=== PATIENT | male | born 1960 | race Caucasian/White ===

== ENCOUNTER 2020-07-03 09:17 | Outpatient (REF) | payer BC, SELFPAY ==
[2020-07-03 11:26] LABS: MANUAL DIFF FLAG NO
[2020-07-03 11:45] LABS: Basophils Percent Auto 0.9 % (0-2); Eosinophils Absolute Auto 0.3 X10*3/uL (0.0-0.4); Eosinophils Percent Auto 9.8 % (0-4); Hematocrit 36.6 % (42-52); Hemoglobin 12.4 g/dl (14.0-18.0); Imm Gran Abs Auto 0.01 X10*3/uL (0.00-0.03); Imm Gran Pct Auto 0.3 % (0.0-0.4); Lymphocytes Absolute Auto 1.1 X10*3/uL (1.2-4.9); Lymphocytes Percent Auto 33.3 % (20-40); Mean Corpuscular HGB Conc 33.9 g/dl (31.0-36.0); Mean Corpuscular Hemoglobin 29.7 pg (27.0-33.0); Mean Corpuscular Volume 87.6 fL (80-98); Mean Platelet Volume 9.5 fL (9.4-12.4); Monocytes Absolute Auto 0.5 X10*3/uL (0.1-1.2); Monocytes Percent Auto 14.1 % (2-11); Neutrophils Absolute Auto 1.4 X10*3/uL (2.0-8.3); Neutrophils Percent Auto 41.6 % (45-73); Platelet Count 176 X10*3/uL (160-400); Red Blood Count 4.18 X10*6/uL (4.60-5.80); Red Cell Distribution Width 14.2 % (11.0-16.0); White Blood Count 3.3 X10*3/uL (4.8-10.8)
[2020-07-03 12:01] LABS: Anion Gap 13 (12-20); Blood Urea Nitrogen 23 mg/dL (9-16); Calcium 8.9 mg/dL (8.4-10.2); Carbon Dioxide 25 mmol/L (22-29); Chloride 105 mmol/L (96-108); Estimated Glomerular Filt Rate > 60; Potassium 4.9 mmol/l (3.3-5.1); Sodium 138 mmol/L (135-145)
[2020-07-03 12:13] LABS: TSH reflex Free T4 3.18 mIU/mL (0.32-4.0); Vitamin D 25-OH Total 13.3 ng/mL (>30)
[2020-07-03 12:14] LABS: Alanine Aminotransferase 69 U/L (0-40); Alkaline Phosphatase 43 U/L (39-117); Anion Gap 13 (12-20); Aspartate Amino Transferase 61 U/L (5-37); Bilirubin Total 0.6 mg/dL (0.0-1.0); Blood Urea Nitrogen 23 mg/dL (9-16); Calcium 8.7 mg/dL (8.4-10.2); Carbon Dioxide 24 mmol/L (22-29); Chloride 106 mmol/L (96-108); Cholesterol 145 mg/dL; Estimated Glomerular Filt Rate > 60; Glucose Fasting 129 mg/dL (60-99); HDL Cholesterol 29 mg/dL; LDL Cholesterol Calculated 72 mg/dl; Potassium 4.8 mmol/l (3.3-5.1); Sodium 138 mmol/L (135-145); Total Protein 7.5 g/dL (6.5-8.0); Triglycerides 224 mg/dL
[2020-07-03 12:17] LABS: Estimated Average Glucose 171 mg/dL; Hemoglobin A1c % 7.6 %
[2020-07-03 12:40] LABS: Creatinine Urine 68.17 mg/dL; Microalbum/Creatinine Ratio Ur 32.2 ug/mg cr
== END 2020-07-03 09:18 | disposition home or self-care (01) ==
LOC: HO.HMGCLDS 09:17
PROVIDERS: PCP Internal Medicine; Referring Provider Internal Medicine Gastroenterology; Visit Provider Internal Medicine Hypertension Specialist
DX: E78.2 Mixed hyperlipidemia (principal); I12.9 Hypertensive chronic kidney disease with stage 1 through stage 4 chronic kidney disease, or unspecified chronic kidney disease; E11.22 Type 2 diabetes mellitus with diabetic chronic kidney disease; N18.2 Chronic kidney disease, stage 2 (mild); K76.0 Fatty (change of) liver, not elsewhere classified
CPT/HCPCS: 36415; 80051; 80053; 80061; 82043; 82306; 82310; 82565; 83036; 84443; 84520; 85025

== ENCOUNTER → 2020-08-22 07:33 | Outpatient (BNVA) | payer BC, SELFPAY | PROVIDERS: PCP Internal Medicine; Visit Provider Internal Medicine Gastroenterology ==

== ENCOUNTER 2020-09-12 07:36 | Outpatient (REF) | payer BC, SELFPAY ==
--- NOTE | ~2020-09-12 | US_ITS ---
EXAMINATION: US COMPLETE ABDOMEN WITH LIVER ELASTOGRAPHY CLINICAL INFORMATION: Fatty liver COMPARISON: Previous ultrasound exam March 2019 TECHNIQUE: Real-time imaging of the abdominal viscera. Noninvasive ultrasound liver fibrosis assessment is performed using Leonardo ElastPQ point quantification shear wave elastography (pSWE) with a C5-2 MHz transducer. Multiple elastography samples are obtained. FINDINGS: PANCREAS: The visualized pancreatic head and body are normal in appearance. The remainder of the pancreas is obscured from visualization by the overlying bowel gas. ABDOMINAL AORTA: The proximal, middle, and distal aortic segments are normal in caliber. INFERIOR VENA CAVA: Visualized portions are normal. LIVER: Liver echotexture is increased. The liver is enlarged. The liver is normal in contour. No focal liver lesion or biliary duct dilatation is seen. The right lobe measures 22 cm in length. The left lobe measures 13 cm in length. Portal flow is normal/hepatopedal Shear wave liver elastography median stiffness is 1.3 m/s (reference: normal median stiffness is 1.3 m/s or less). IQR/median stiffness to assess sampling precision is 0.13 (reference: good quality data set is IQR/median stiffness of 0.15 or less). GALLBLADDER: Normal. The gallbladder is physiologically distended without evidence of stones, sludge, polyps, wall thickening or pericholecystic fluid. COMMON BILE DUCT: Normal in caliber measuring 0.3 cm in diameter. RIGHT KIDNEY: Normal. No hydronephrosis. No renal calculi or focal parenchymal lesions. The kidney measures 12.8 cm in maximum dimension. LEFT KIDNEY: Normal. No hydronephrosis. No renal calculi or focal parenchymal lesions. The kidney measures 12.6 cm in maximum dimension. SPLEEN: Normal. The spleen measures 13.3 cm in maximum dimension. FREE FLUID: None. US/US abdomen comp w elastography IMPRESSION: 1. Impression: Enlarged echogenic liver suggestive of fatty infiltration. Limited visualization of the tail the pancreas. 2. Liver elastography: High probability of normal. No change from previous exam. REFERENCE: Society of Radiologists in Ultrasound Liver Stiffness Thresholds (2020): LIVER STIFFNESS THRESHOLDS: *Liver Stiffness equal or less than 1.3 m/s: High probability of being normal. *Liver Stiffness less than 1.7 m/s: In the absence of other known clinical signs, rules out compensated advanced chronic liver disease. *Liver Stiffness 1.7-2.1 m/s: Suggestive of compensated advanced chronic liver disease but need further test for confirmation. *Liver Stiffness over 2.1 m/s: Rules in compensated advanced chronic liver disease. *Liver Stiffness over 2.4 m/s: Suggestive of clinically significant portal hypertension. QUALITY OF DATA SET: *IQR/Median value equal or less than 0.15 implies a quality data set. *IQR/Median value over 0.15 implies a poor quality data set. SIGNIFICANT CHANGE FROM PRIOR EXAM: Significant change if liver stiffness measurement is 10% or greater from prior exam. OTHER CONSIDERATIONS: The stage of liver fibrosis may be overestimated in the setting of acute hepatitis, liver inflammation, elevated liver function tests, hepatic vascular congestion, obstructive cholestasis, non-fasting state, and infiltrative diseases such as amyloidosis and lymphoma. In some patients with NAFLD, the liver stiffness thresholds for compensated advanced chronic liver disease may be lower. In causes other than viral hepatitis and NAFLD, liver stiffness thresholds are not well established.
== END 2020-09-12 07:37 | disposition home or self-care (01) ==
LOC: HO.US 07:36
PROVIDERS: Visit Provider Internal Medicine Gastroenterology
DX: K76.0 Fatty (change of) liver, not elsewhere classified (principal)
CPT/HCPCS: 76705; 76981

== ENCOUNTER 2020-10-13 08:53 | Outpatient (REF) | payer BC, SELFPAY ==
[2020-10-13 09:45] LABS: Hematocrit 35.5 % (42-52); Hemoglobin 12.3 g/dl (14.0-18.0); Mean Corpuscular HGB Conc 34.6 g/dl (31.0-36.0); Mean Corpuscular Hemoglobin 30.2 pg (27.0-33.0); Mean Corpuscular Volume 87.2 fL (80-98); Platelet Count 164 X10*3/uL (160-400); Red Blood Count 4.07 X10*6/uL (4.60-5.80); Red Cell Distribution Width 14.2 % (11.0-16.0); White Blood Count 3.5 X10*3/uL (4.8-10.8)
[2020-10-13 10:27] LABS: Alanine Aminotransferase 70 U/L (0-40); Albumin Level 3.9 g/dL (3.5-5.0); Alkaline Phosphatase 45 U/L (39-117); Anion Gap 16 (12-20); Aspartate Amino Transferase 58 U/L (5-37); Bilirubin Total 0.7 mg/dL (0.0-1.0); Blood Urea Nitrogen 28 mg/dL (9-16); Calcium 9.3 mg/dL (8.4-10.2); Carbon Dioxide 20 mmol/L (22-29); Chloride 105 mmol/L (96-108); Cholesterol 159 mg/dL; Estimated Glomerular Filt Rate 55; Glucose Fasting 209 mg/dL (60-99); HDL Cholesterol 25 mg/dL; Iron 100 mcg/dL (45-160); LDL Cholesterol Calculated 69 mg/dl; Percent Iron Saturation 31 % (15-50); Potassium 4.9 mmol/L (3.3-5.1); Sodium 136 mmol/L (135-145); Total Iron Binding Capacity 322 mcg/dL (228-428); Total Protein 7.7 g/dL (6.5-8.0); Triglycerides 327 mg/dL; Unsaturated Iron Binding 222 ug/dL
[2020-10-13 10:30] LABS: Creatinine Urine 59.44 mg/dL; Protein/Creatinine Ratio, Ur 0.15 (<0.2); Total Protein Urine Random 9 mg/dL (<12)
[2020-10-13 10:31] LABS: Creatinine Urine 59.86 mg/dL; Microalbum/Creatinine Ratio Ur 26.7 ug/mg cr
[2020-10-13 10:32] LABS: Estimated Average Glucose 189 mg/dL; Hemoglobin A1c % 8.2 %
[2020-10-13 10:41] LABS: Vitamin D 25-OH Total 16.5 ng/mL (>30)
[2020-10-15 03:53] LABS: Folate 9.2 ng/mL (> or = 4.0); Vitamin B12 252 pg/mL (200-900)
== END 2020-10-13 08:54 | disposition home or self-care (01) ==
LOC: HO.LNP 08:53
PROVIDERS: Absent Provider Internal Medicine; PCP Internal Medicine; Visit Provider Internal Medicine Hypertension Specialist
DX: Z00.00 Encounter for general adult medical examination without abnormal findings (principal); E11.22 Type 2 diabetes mellitus with diabetic chronic kidney disease; I13.10 Hypertensive heart and chronic kidney disease without heart failure, with stage 1 through stage 4 chronic kidney disease, or unspecified chronic kidney disease; N18.9 Chronic kidney disease, unspecified; E78.5 Hyperlipidemia, unspecified; I10 Essential (primary) hypertension
CPT/HCPCS: 80053; 80061; 82043; 82306; 82607; 82746; 83036; 83540; 84156; 85027

== ENCOUNTER 2021-03-12 07:28 | Outpatient (REF) | payer BC, SELFPAY ==
[2021-03-12 11:52] LABS: Alanine Aminotransferase 87 U/L (0-40); Alkaline Phosphatase 43 U/L (39-117); Anion Gap 13 (12-20); Aspartate Amino Transferase 72 U/L (5-37); Bilirubin Total 0.8 mg/dL (0.0-1.0); Blood Urea Nitrogen 22 mg/dL (9-16); Carbon Dioxide 24 mmol/L (22-29); Chloride 105 mmol/L (96-108); Cholesterol 167 mg/dL; Estimated Glomerular Filt Rate > 60; Glucose Fasting 163 mg/dL (60-99); HDL Cholesterol 32 mg/dL; LDL Cholesterol Calculated 79 mg/dl; Potassium 4.5 mmol/L (3.3-5.1); Sodium 137 mmol/L (135-145); Total Protein 7.9 g/dL (6.5-8.0); Triglycerides 281 mg/dL
[2021-03-12 12:00] LABS: Estimated Average Glucose 146 mg/dL; Hemoglobin A1c % 6.7 %
[2021-03-12 12:11] LABS: Vitamin D 25-OH Total 24.2 ng/mL (>30)
[2021-03-12 12:13] LABS: Creatinine Urine 43.05 mg/dL; Microalbum/Creatinine Ratio Ur 46.4 ug/mg cr
[2021-03-12 13:37] LABS: Folate 9.8 ng/mL (> or = 4.0); Vitamin B12 473 pg/mL (200-900)
== END 2021-03-12 07:29 | disposition home or self-care (01) ==
LOC: HO.HMGCLDS 07:28
PROVIDERS: PCP Internal Medicine; Visit Provider Internal Medicine
DX: I10 Essential (primary) hypertension (principal); E11.9 Type 2 diabetes mellitus without complications; E78.5 Hyperlipidemia, unspecified
CPT/HCPCS: 36415; 80053; 80061; 82043; 82306; 82607; 82746; 83036

== ENCOUNTER 2021-07-20 09:35 | Outpatient (REF) | payer OTHER, SELFPAY ==
[2021-07-20 11:59] LABS: Hematocrit 35.1 % (42.0-52.0); Mean Corpuscular HGB Conc 34.2 g/dl (31.0-36.0); Mean Corpuscular Hemoglobin 30.2 pg (27.0-33.0); Mean Corpuscular Volume 88.4 fL (80.0-98.0); Mean Platelet Volume 9.4 fL (9.4-12.4); Platelet Count 180 X10*3/uL (160-400); Red Blood Count 3.97 X10*6/uL (4.60-5.80); Red Cell Distribution Width 14.5 % (11.0-16.0)
[2021-07-20 12:01] LABS: Estimated Average Glucose 146 mg/dL; Hemoglobin A1c % 6.7 %
[2021-07-20 12:18] LABS: Alanine Aminotransferase 75 U/L (0-40); Albumin Level 3.8 g/dL (3.5-5.0); Alkaline Phosphatase 35 U/L (39-117); Anion Gap 10 (12-20); Aspartate Amino Transferase 72 U/L (5-37); Bilirubin Total 0.7 mg/dL (0.0-1.0); Blood Urea Nitrogen 19 mg/dL (9-16); Calcium 9.3 mg/dL (8.4-10.2); Carbon Dioxide 26 mmol/L (22-29); Chloride 108 mmol/L (96-108); Cholesterol 145 mg/dL; Estimated Glomerular Filt Rate > 60; Glucose Fasting 101 mg/dL (60-99); HDL Cholesterol 29 mg/dL; LDL Cholesterol Calculated 84 mg/dl; Potassium 4.8 mmol/L (3.3-5.1); Sodium 139 mmol/L (135-145); Total Protein 7.6 g/dL (6.5-8.0); Triglycerides 164 mg/dL
[2021-07-20 12:21] LABS: Microalbum/Creatinine Ratio Ur 87.1 ug/mg cr
== END 2021-07-20 09:36 | disposition home or self-care (01) ==
LOC: HO.LAB 09:35
PROVIDERS: PCP Internal Medicine; Visit Provider Internal Medicine
DX: E11.9 Type 2 diabetes mellitus without complications (principal); I10 Essential (primary) hypertension; E78.5 Hyperlipidemia, unspecified; E55.9 Vitamin D deficiency, unspecified
CPT/HCPCS: 36415; 80053; 80061; 82043; 83036; 85027

== ENCOUNTER 2021-08-02 07:40 | Outpatient (REF) | payer OTHER, SELFPAY ==
--- NOTE | ~2021-08-02 | US_ITS ---
EXAMINATION: US RETROPERITONEAL LIMITED (AORTA) CLINICAL INFORMATION: Abdominal aortic aneurysm without rupture. COMPARISON: Ultrasound aorta 12/26/2016. TECHNIQUE: Swan-scale, color Doppler and spectral Doppler evaluation of the abdominal aorta. FINDINGS: The aorta is normal. The measurements of the aorta in maximum AP and transverse dimensions respectively are as follows: Proximal: 2.4 x 2.6 cm. Mid: 2.2 x 2.1 cm. Distal: 2.0 x 1.9 cm. PSV: 94 cm/s. The measurements of the common iliac arteries in maximum AP and TRV dimensions are as follows: Right Common Iliac Artery: 1.4 x 1.6 cm. Left Common Iliac Artery: 1.3 x 1.5 cm. US/US abdominal aortic aneurysm IMPRESSION: Normal caliber abdominal aorta. No evidence of aneurysm.
--- NOTE | ~2021-08-02 | US_ITS ---
EXAMINATION: US DOPPLER LOWER EXTREMITY ARTERIAL , BILATERAL CLINICAL INFORMATION: Peripheral vascular disease COMPARISON: None TECHNIQUE: Ultrasound arterial duplex lower extremity bilateral performed including grayscale, color Doppler, and spectral Doppler. FINDINGS: RIGHT: Common femoral: PSV 100 centimeters per second. Triphasic waveform. Deep femoral: PSV 69 centimeters per second. Biphasic waveform. Proximal superficial femoral: PSV 95 centimeters per second. Triphasic waveform. Mid superficial femoral: PSV 109 centimeters per second. Triphasic waveform. Distal superficial femoral: PSV 103 centimeters per second. Triphasic waveform. Proximal popliteal: PSV 67 centimeters per second. Triphasic waveform. Distal popliteal: PSV 90 centimeters per second. Biphasic waveform. LEFT: Common femoral: PSV 106 centimeters per second. Triphasic waveform. Deep femoral: PSV 74 centimeters per second. Biphasic waveform. Proximal superficial femoral: PSV 97 centimeters per second. Triphasic waveform. Mid superficial femoral: PSV 118 centimeters per second. Triphasic waveform. Distal superficial femoral: PSV 88 centimeters per second. Triphasic waveform. Proximal popliteal: PSV 80 centimeters per second. Biphasic waveform. Distal popliteal: PSV 118 centimeters per second. Biphasic waveform. US/US arterial duplex LE BI IMPRESSION: No evidence of hemodynamically significant peripheral arterial disease.
== END 2021-08-02 07:41 | disposition home or self-care (01) ==
LOC: HO.US 07:40
PROVIDERS: PCP Internal Medicine; Visit Provider Internal Medicine
DX: I71.4 Abdominal aortic aneurysm, without rupture (principal); E55.9 Vitamin D deficiency, unspecified; E78.5 Hyperlipidemia, unspecified; E11.9 Type 2 diabetes mellitus without complications; I10 Essential (primary) hypertension; I73.9 Peripheral vascular disease, unspecified
CPT/HCPCS: 76706; 93925

== ENCOUNTER → 2021-09-10 15:29 | Outpatient (REF) | payer OTHER, SELFPAY | LOC: HO.SL 15:29 | PROVIDERS: PCP Internal Medicine; Visit Provider Internal Medicine | DX: G47.30 Sleep apnea, unspecified (principal) | CPT/HCPCS: 95806 ==

== ENCOUNTER → 2021-10-31 09:57 | Outpatient (BNVA) | payer OTHER, SELFPAY | PROVIDERS: PCP Internal Medicine; Visit Provider Internal Medicine | DX: E66.9 Obesity, unspecified (principal) ==

== ENCOUNTER 2021-11-07 08:01 | Emergency (ER) | payer OTHER, SELFPAY ==
--- NOTE | ~2021-11-07 | XR_ITS ---
EXAMINATION: XR CHEST CLINICAL INFORMATION: Cough COMPARISON: None TECHNIQUE: 2 views of the chest were obtained. FINDINGS: No significant abnormality is noted involving the heart, lungs, mediastinum, bony thorax or soft tissues. Mild degenerative changes are present throughout the visualized spine. XR/XR chest 2V IMPRESSION: No acute intrathoracic disease.
[2021-11-07 08:34] VITALS: BP 143/72; PULSE 80; RESP 18; TEMP 36.7; O2SAT 97; BMI 32.3
[2021-11-07 09:27] LABS: COVID-19 Test Negative (Negative); IDNOW Serial# 16C4AD1C
[2021-11-07 09:28] LABS: Influenza A Negative (Negative); Influenza B2 Negative (Negative)
--- NOTE | 2021-11-07 11:41 | ED_ITS ---
HPI - URI/Sore Throat General Chief Complaint: Upper Respiratory Symptoms Stated Complaint: FLU SYMPTOMS Time Seen by Provider: 11/07/21 11:25 Source: patient Mode of arrival: ambulatory Limitations: no limitations History of Present Illness HPI Narrative: 61-year-old male with a history of hypertension, hyperlipidemia, diabetes here with 5 days of nasal congestion. Patient denies any fevers, chills, shortness o f breath, chest pain, cough, body aches, chills. Has had 4 covid vaccinations. Had covid 06/2021. Has had multiple exposures to COVID and influenza a this past week Related Data Home Medications Medication Instructions Recorded Confirmed flu vacc [id number] 6mos up(PF) ml IM 07/10/20 07/22/21 insulin glargine-yfgn 100 unit/mL unit SUBCUT 07/22/21 07/22/21 (3 mL) subcutaneous pen (Semglee (insulin glargine-yfgn) Pen) Previous Rx's Medication Instructions Recorded amlodipine 5 mg tablet 5 mg PO DAILY #90 tab 07/03/21 atenolol 50 mg tablet 50 mg PO DAILY #90 tab 07/03/21 ergocalciferol (vitamin D2) 1,250 1,250 mcg PO QWEEK 90 Days #12 cap 07/03/21 mcg (50,000 unit) capsule fenofibrate nanocrystallized 145 145 mg PO DAILY #90 tab 07/03/21 mg tablet insulin glargine 100 unit/mL (3 80 unit (0.8 mL) SUBCUT BID #150 ml 07/03/21 mL) subcutaneous pen (Lantus Solostar U-100 Insulin) insulin lispro 100 unit/mL See Rx Instructions SUBCUT TID #30 07/03/21 subcutaneous pen (Humalog KwikPen ml (U-100) Insulin) pen needle, diabetic 32 gauge x #400 ea 07/03/21 simvastatin 20 mg tablet 20 mg PO BEDTIME #90 tab 07/03/21 blood sugar diagnostic (OneTouch #200 ea 07/04/21 Ultra Test) cyanocobalamin (vitamin B-12) 1,000 mcg SUBLINGUAL DAILY #90 tab 07/04/21 1,000 mcg sublingual tablet dulaglutide 1.5 mg/0.5 mL 1.5 mg (0.5 mL) SUBCUT QWEEK #6 ml 07/04/21 subcutaneous pen injector lancets (OneTouch UltraSoft #200 ea 07/04/21 Lancets) valsartan 80 mg tablet 80 mg PO DAILY #90 tab 07/04/21 Allergies Allergy/AdvReac Type Severity Reaction Status Date / Time No Known Allergies Allergy Verified 11/07/21 08:34 [No Known Allergies*] Review of Systems Review of Systems: Yes all other systems are reviewed and are negative Constitutional: Constitutional: Reports no additional constitutional complaints, Denies body ache(s), Denies chills, Denies fever(s), Denies headache(s) and Denies weakness Eyes: Eyes: Reports no additional eye complaints and Denies change in vision ENT: Reports system reviewed and no additional complaints, except as documented, Denies dizziness, Denies headache(s), Reports nasal congestion, Denies nasal discharge and Denies neck pain Cardiovascular: Cardiovascular: Reports no additional cardiovascular complaints, Denies chest pain, Denies leg edema and Denies dyspnea Respiratory: Respiratory: Reports no additional respiratory complaints, Denies cough and Denies dyspnea Gastrointestinal: Gastrointestinal: Reports no additional gastrointestinal complaints, Denies abdominal pain, Denies diarrhea, Denies nausea and Denies vomiting Genitourinary: Genitourinary: Denies urinary incontinence Musculoskeletal: Musculoskeletal: Reports no additional musculoskeletal complaints, Denies back pain, Denies arthralgias, Denies joint swelling, Denies neck pain, Denies numbness and Denies tingling Integumentary/Breasts: Skin/Breast: Reports system reviewed and no additional complaints, except as docu and Denies rash Neurologic: Denies Abnormal speech present, Denies dizziness, Denies headache(s), Denies numbness, Denies tingling and Denies weakness [facility] Past Medical History Attestation statement: The following information was validated with the patient. Source: old records reviewed and nursing notes reviewed Medical History AAA (abdominal aortic aneurysm) Annual physical exam ARF (acute renal failure) BPH (benign prostatic hyperplasia) Claudication Diabetic neuropathy DM II (diabetes mellitus, type II), controlled Hepatic steatosis HTN (hypertension) Hx of obesity Hyperlipidemia Obesity (BMI 30-39.9) BELKIS (obstructive sleep apnea) Renal cyst Sleep apnea Vitamin B12 deficiency Vitamin D deficiency Surgical History H/O colonoscopy History of carpal tunnel surgery Hx of left knee surgery Family History Family History Father HTN (hypertension) Mother HTN (hypertension) Social History Social History Household Members: Spouse Housing: House Alcohol intake: current Alcohol intake frequency: holidays/special occasions only Alcohol type: beer Patient Tobacco Use Status: Never used Tobacco Second Hand Smoke Exposure: No (as a child ) Advance Directives: No Current occupational status: employed Current occupation: [employer] Physical Exam Vital Signs: Vital Signs: Last Vital Signs Temp 98.1 F 11/07/21 08:34 Pulse 80 11/07/21 08:34 Resp 18 11/07/21 08:34 BP 143/72 H 11/07/21 08:34 Pulse Ox 97 11/07/21 08:34 BMI result Body Mass Index 32.3 Const: General: cooperative, healthy appearing, comfortable and no acute distress Orientation/consciousness: patient oriented x3 Limitations: no limitations HEENT: Head: Yes normal to inspection Ears: hearing grossly normal bilaterally and TM's normal bilaterally General nose exam: Normal external nose present Face and sinus: Yes normal facial exam Mouth: Normal oral and palatal mucosa present Throat: Yes posterior oropharynx normal, Yes tonsils normal and Yes uvula midline Eyes: General: appearance normal, both eyes and all related structures Pupils: Equal, round and reactive pupils present Neck: Neck: Yes normal visual inspection, Yes full ROM, Yes no lymphadenopathy and Yes no meningeal signs Chest: Chest palpation & inspection: normal inspection of the chest Resp: Effort & Inspection: normal respiratory effort Auscultation: clear to auscultation bilaterally Cardio: Rate: regular rate Rhythm: regular rhythm Peripheral pulses: Peripheral pulses 2+ throughout GI: Inspection: Yes normal to inspection Palpation (GI): Soft to palpation and nontender Auscultation: normal bowel sounds Back/Spine/Pelvis: Thoracic/Lumbar Spine: thoracic and lumbar spine normal to inspection Skin: General skin exam: no rashes or lesions noted Neuro: General: patient oriented x3, no meningeal signs, no focal motor deficits and normal sensation to monofilament Cranial nerves: Yes Equal, round and reactive pupils present Cognition (Neuro): normal cognition Speech: No Abnormal speech present Gait exam (Neuro): Normal gait present Motor exam (neuro): 5/5 motor strength present throughout Extrem: General: Yes normal to inspection Course Course Course Narrative: 61-year-old male here with 5 days of nasal congestion. Exam is normal. Vitals are stable. Patient has had multiple exposures to COVID and influenza a and last week. Rapid COVID and flu were negative. Chest x-ray shows no acute finding. L likely allergic rhinitis. Recommended nasal spray, [id number] allergy medication and follow-up with primary care doctor for any persistent symptoms. Reviewed worrisome signs and symptoms of when to return to the emergency department. Comfortable discharge home. MDM - URI/Sore Throat Medical Records Attestation: I reviewed the patient's medical records. Lab Data Attestation: I reviewed the patient's lab results. Labs: Lab Results 11/07/21 11/07/21 Range/Units 08:37 08:40 COVID-19 (ANNA) Negative (Negative) COVID-19 Clin Com See Note Influenza Type A (JULIA) Negative (Negative) Influenza Type B (JULIA) Negative (Negative) Influenza A & B Note See Note Imaging Data Chest x-ray: Attestation: I personally reviewed and interpreted this imaging study as follows: Radiologist's impression: [address] [address] XRay Report Signed Patient: Justo Brown MR#: [id number] : 1960 Acct:[id number] Age/Sex: 61 / M ADM Date: 11/07/21 Loc: .ED Attending Dr: Ordering Physician: Generic ED Physician Date of Service: 11/07/21 Procedure(s): XR chest 2V Accession Number(s): [id number] cc: Generic ED Physician~ EXAMINATION: XR CHEST CLINICAL INFORMATION: Cough COMPARISON: None TECHNIQUE: 2 views of the chest were obtained. FINDINGS: No significant abnormality is noted involving the heart, lungs, mediastinum, bony thorax or soft tissues. Mild degenerative changes are present throughout the visualized spine. XR/XR chest 2V IMPRESSION: No acute intrathoracic disease. Discharge Plan Discharge Clinical Impression: Viral infection Patient Disposition: Home, Self-Care Instructions: Viral Syndrome (ED) Additional Instructions: Testing for flu and covid are negative Chest x-ray shows no signs of pneumonia Prescriptions: No Action Lantus Solostar U-100 Insulin 100 unit/mL (3 mL) insulin pen 80 unit subcut BID Qty: 150 3RF fenofibrate nanocrystallized 145 mg tablet 145 mg PO DAILY Qty: 90 3RF insulin lispro [Humalog KwikPen Insulin] 100 unit/mL insulin pen See Rx Instructions subcut TID Qty: 30 3RF Rx Instructions: 10-14 units subcut 3 times a day; (DME) pen needle, diabetic 32 gauge x 5/32 needle See Rx Instructions ea subcut .MEDSUPPLY Qty: 400 3RF Rx Instructions: use one needle four times a day for subcutaneous insulin injections simvastatin 20 mg tablet 20 mg PO BEDTIME Qty: 90 3RF atenolol 50 mg tablet 50 mg PO DAILY Qty: 90 3RF amlodipine 5 mg tablet 5 mg PO DAILY Qty: 90 3RF ergocalciferol (vitamin D2) 1,250 mcg (50,000 unit) capsule 1,250 mcg PO QWEEK 90 Days Qty: 12 4RF (DME) lancets [OneTouch UltraSoft Lancets] Misc See Rx Instructions .Route Qty: 200 3RF Rx Instructions: test blood sugar twice a day and prn for symptoms valsartan 80 mg tablet 80 mg PO DAILY Qty: 90 3RF dulaglutide 1.5 mg/0.5 mL pen injector 1.5 mg subcut QWEEK Qty: 6 3RF cyanocobalamin (vitamin B-12) 1,000 mcg tablet, sublingual 1,000 mcg sublingual DAILY Qty: 90 3RF (DME) OneTouch Ultra Test Strip See Rx Instructions .Route Qty: 200 3RF Rx Instructions: test blood sugar twice a day and prn Fluarix Quad [id number] (PF) 60 mcg (15 mcg x 4)/0.5 mL syringe IM 0RF insulin glargine-yfgn [Semglee(insulin glarg-yfgn)Pen] 100 unit/mL (3 mL) insulin pen subcut 0RF Referrals: Kerry Salter MD [Primary Care Provider] - 1 week (as needed) Interventions: ED Discharge Assessment Last Done: 11/07/21 11:36 Discharge Date/Time: 11/07/21 11:37
== END 2021-11-07 11:37 | disposition home or self-care (01) ==
PROVIDERS: Emergency Provider Emergency Medicine; PCP Internal Medicine
DX: B34.9 Viral infection, unspecified (principal); Z20.822 Contact with and (suspected) exposure to COVID-19; I10 Essential (primary) hypertension; E11.9 Type 2 diabetes mellitus without complications; E78.5 Hyperlipidemia, unspecified; Z79.4 Long term (current) use of insulin
CPT/HCPCS: 71046; 87502; 87635; 99283

== ENCOUNTER 2022-03-06 07:51 | Outpatient (REF) | payer OTHER, SELFPAY ==
[2022-03-06 08:57] LABS: Estimated Average Glucose 146 mg/dL; Hemoglobin A1c % 6.7 %
[2022-03-06 09:07] LABS: Alanine Aminotransferase 85 U/L (0-40); Albumin Level 3.8 g/dL (3.5-5.0); Alkaline Phosphatase 53 U/L (39-117); Anion Gap 16 (12-20); Aspartate Amino Transferase 69 U/L (5-37); Bilirubin Total 0.6 mg/dL (0.0-1.0); Blood Urea Nitrogen 25 mg/dL (9-16); Calcium 9.4 mg/dL (8.4-10.2); Carbon Dioxide 21 mmol/L (22-29); Chloride 102 mmol/L (96-108); Cholesterol 166 mg/dL; Estimated Glomerular Filt Rate > 60; Glucose Fasting 252 mg/dL (60-99); HDL Cholesterol 25 mg/dL; LDL Cholesterol Calculated 66 mg/dl; Potassium 4.6 mmol/L (3.3-5.1); Sodium 134 mmol/L (135-145); Total Protein 7.7 g/dL (6.5-8.0); Triglycerides 375 mg/dL
[2022-03-06 09:20] LABS: Prostate Specific Antigen Scr 0.19 ng/mL (<0.05-4.0); Vitamin D 25-OH Total 18.2 ng/mL (>30)
[2022-03-06 09:29] LABS: Vitamin B12 346 pg/mL (200-900)
[2022-03-06 12:22] LABS: Creatinine Urine 24.13 mg/dL; Microalbum/Creatinine Ratio Ur 91.1 ug/mg cr
== END 2022-03-06 07:52 | disposition home or self-care (01) ==
LOC: HO.LAB 07:51
PROVIDERS: PCP Internal Medicine; Visit Provider Internal Medicine
DX: Z12.5 Encounter for screening for malignant neoplasm of prostate (principal); E53.8 Deficiency of other specified B group vitamins; E55.9 Vitamin D deficiency, unspecified; E78.5 Hyperlipidemia, unspecified; I10 Essential (primary) hypertension; N40.0 Benign prostatic hyperplasia without lower urinary tract symptoms; E11.9 Type 2 diabetes mellitus without complications
CPT/HCPCS: 36415; 80053; 80061; 82043; 82306; 82607; 83036; 84153

== ENCOUNTER → 2022-06-25 11:13 | Outpatient (BNVA) | payer OTHER, SELFPAY | PROVIDERS: PCP Internal Medicine; Visit Provider Internal Medicine | DX: Z13.89 Encounter for screening for other disorder (principal) ==

== ENCOUNTER → 2023-09-29 15:57 | Outpatient (BNVA) | payer MEDICARE, OTHER, SELFPAY | PROVIDERS: PCP Internal Medicine; Visit Provider Internal Medicine | DX: G47.33 Obstructive sleep apnea (adult) (pediatric) (principal); E66.9 Obesity, unspecified; Z68.33 Body mass index [BMI] 33.0-33.9, adult | CPT/HCPCS: 99212 ==

== ENCOUNTER 2023-11-15 22:52 | Emergency (ER) | payer MEDICARE, SELFPAY ==
--- NOTE | ~2023-11-15 | XR_ITS ---
EXAMINATION: XR CHEST CLINICAL INFORMATION: Cough and wheeze COMPARISON: PA and lateral chest 11/07/2021 TECHNIQUE: 2 views of the chest were obtained. FINDINGS: No significant abnormality is noted involving the heart, lungs, mediastinum, bony thorax or soft tissues aside from calcifications seen in the right supraspinatus tendon and mild to moderate degenerative changes in the spine. XR/XR chest 2V IMPRESSION: No acute intrathoracic disease. Incidental findings as described above.
[2023-11-15 22:54] VITALS: BP 168/70; PULSE 87; RESP 16; TEMP 37.2; O2SAT 97; BMI 32.1
[2023-11-16 04:59] VITALS: BP 147/71; PULSE 73; RESP 16; TEMP 36.8; O2SAT 96
[2023-11-16 06:39] VITALS: BP 144/71; PULSE 70; RESP 16; TEMP 36.7; O2SAT 97
--- NOTE | 2023-11-16 07:17 | ED_ITS ---
HPI - General Adult General Chief complaint: Skin/Abscess/Foreign Body Stated complaint: inhaling med and silicone packing lodged Time Seen by Provider: 11/16/23 07:02 Source: patient Mode of arrival: ambulatory Limitations: no limitations History of Present Illness ED Provider: Dr. Botello HPI narrative: One week of wheezing and cough seen by reneein and started on albuterol and cough medicine and decongestant. Related Data Home Medications ?Medication ?Instructions ?Recorded ?Confirmed flu vacc [id number] 6mos up(PF) 60 ml IM 07/10/20 09/29/23 mcg(15 mcgx4)/0.5 mL IM syringe insulin lispro 100 unit/mL See Rx Instructions subcut TID PRN 06/25/22 09/29/23 subcutaneous pen (Humalog KwikPen (U-100) Insulin) amlodipine 2.5 mg tablet 2.5 mg PO DAILY 09/29/23 09/29/23 aspirin 81 mg tablet,delayed 81 mg PO DAILY 09/29/23 09/29/23 release (Adult Low Dose Aspirin) insulin glargine 100 unit/mL (3 80 unit subcut BID 09/29/23 09/29/23 mL) subcutaneous pen (Basaglar KwikPen U-100 Insulin) Previous Rx's ?Medication ?Instructions ?Recorded amlodipine 5 mg tablet 5 mg PO DAILY #90 tabs 07/03/21 atenolol 50 mg tablet 50 mg PO DAILY #90 tabs 07/03/21 fenofibrate nanocrystallized 145 145 mg PO DAILY #90 tabs 07/03/21 mg tablet pen needle, diabetic 32 gauge x #400 ea 07/03/21 simvastatin 20 mg tablet 20 mg PO BEDTIME #90 tabs 07/03/21 blood sugar diagnostic ([employer] TechnologyTouch #200 ea 07/04/21 Ultra Test strips) dulaglutide 1.5 mg/0.5 mL 1.5 mg (0.5 mL) subcut QWEEK #6 mL 07/04/21 subcutaneous pen injector lancets ([employer] TechnologyTouch UltraSoft #200 ea 07/04/21 Lancets) valsartan 80 mg tablet 80 mg PO DAILY #90 tabs 07/04/21 cyanocobalamin (vitamin B-12) 1,000 mcg sublingual DAILY #90 tabs 12/25/21 1,000 mcg sublingual tablet fluticasone furoate 27.5 2 spray intranasal DAILY #9.1 mL 11/16/23 mcg/actuation nasal spray,suspension (Flonase Sensimist) Allergies Allergy/AdvReac Type Severity Reaction Status Date / Time No Known Allergies Allergy Verified 11/15/23 22:57 [No Known Allergies*] Review of Systems Review of Systems: Yes all other systems are reviewed and are negative Neurologic: Denies Sensory deficit (Neuro) [facility] Past Medical History Medical History BELKIS (obstructive sleep apnea) Obesity (BMI 30-39.9) BPH (benign prostatic hyperplasia) Sleep apnea Claudication AAA (abdominal aortic aneurysm) Vitamin B12 deficiency Vitamin D deficiency Hx of obesity Hepatic steatosis Annual physical exam ARF (acute renal failure) Diabetic neuropathy Renal cyst Hyperlipidemia HTN (hypertension) DM II (diabetes mellitus, type II), controlled Surgical History Hx of left knee surgery History of carpal tunnel surgery H/O colonoscopy Family History Family History Father HTN (hypertension) Mother HTN (hypertension) Social History Social History Household Members: Spouse Housing: House Alcohol intake: current Alcohol intake frequency: holidays/special occasions only Alcohol type: beer Patient Tobacco Use Status: Never used Tobacco Second Hand Smoke Exposure: No (as a child ) Advance Directives: No Advance Directives Information Provided: No Do you have a plan to hurt others: No Plan Current occupational status: employed Current occupation: [employer] Physical Exam ED Vital Signs: Vital Signs - 24 hr 11/15/23 22:54 11/16/23 04:59 11/16/23 06:39 Temperature 99 F 98.3 F 98.0 F Pulse Rate 87 73 70 Respiratory Rate 16 16 16 Blood Pressure 168/70 H 147/71 H 144/71 H Pulse Oximetry 97 96 97 Oxygen Delivery Method Room Air Room Air Room Air 11/16/23 07:45 11/16/23 08:00 Temperature 96.6 F L Pulse Rate 72 81 Respiratory Rate 18 14 Blood Pressure 116/62 Pulse Oximetry 97 Oxygen Delivery Method Room Air BMI result Body Mass Index 32.1 Const General: healthy appearing Nutritional Appearance: average body habitus Orientation/consciousness: oriented to person and patient oriented x3 Limitations: no limitations HENMT Head: Yes normal to inspection Ears: external ears normal General nose exam: Normal external nose present Mouth: Normal oral and palatal mucosa present and oropharynx normal Throat: Yes posterior oropharynx normal Eyes General: appearance normal, both eyes and all related structures Neck Neck: Yes normal visual inspection Chest Chest palpation & inspection: normal inspection of the chest Resp Other: slight wheeze bilaterally Cardio Jugular venous distension: no JVD Rate: regular rate Rhythm: regular rhythm Heart sounds: S1 normal heart sound present and S2 normal heart sound present GI Inspection: Yes normal to inspection Palpation (GI): Soft to palpation, nontender and No hepatosplenomegaly present Auscultation: normal bowel sounds General: Yes no CVA tenderness Back/Spine/Pelvis Back: no CVA tenderness Skin General skin exam: no rashes or lesions noted Neuro General: oriented to person and patient oriented x3 Cranial nerves: Yes CN's II-XII intact bilaterally Motor exam (neuro): 5/5 motor strength present throughout Sensory Exam: No Sensory deficit (Neuro) Extrem General: Yes normal to inspection Psych Appearance: grossly normal Course Reevaluation(s) Reevaluation #1: Patient swallowed silica packet, and continues to wheeze with nasal congestion. Xray is negative. Time: 08:20 Medications Administered Discontinued Medications Generic Name Dose Route Start Last Admin Trade Name Freq PRN Reason Stop Dose Admin Albuterol/Ipratropium 3 ml 11/16/23 07:18 11/16/23 07:45 Albuterol/Iprat 2.5/0.5mg 3 Ml Ampul.Neb INHALE 11/16/23 07:19 3 ml ONCE ONE Administration Medical Decision Making Differential Diagnosis Differential Diagnoses: The differential diagnosis associated with the presentation includes (seasonal allergies, pneumonia, asthma copd, foreign body ingestion) Admission/Observation Consideration of admission/observation: Escalation of care including admission/observation considered (upon arrival admission was considered) Independent Interpretation I performed an independent interpretation of an: Plain X-Ray (no infiltrate no foreign body) Prescription Management I considered prescription management with: Antibiotic (no infiltrate on chest xray) Discharge Plan Discharge Clinical Impression: Acute seasonal allergic rhinitis, Acute bronchospasm Patient Disposition: Home, Self-Care Instructions: Allergic Rhinitis (ED), Bronchospasm (ED) Prescriptions: New Flonase Sensimist 27.5 mcg/actuation spray,suspension 2 spray intranasal DAILY Qty: 9.1 0RF Rx Instructions: into each nostril No Action fenofibrate nanocrystallized 145 mg tablet 145 mg PO DAILY Qty: 90 3RF (DME) pen needle, diabetic 32 gauge x 5/32 needle See Rx Instructions subcut .MEDSUPPLY Qty: 400 3RF Rx Instructions: use one needle four times a day for subcutaneous insulin injections simvastatin 20 mg tablet 20 mg PO BEDTIME Qty: 90 3RF atenolol 50 mg tablet 50 mg PO DAILY Qty: 90 3RF amlodipine 5 mg tablet 5 mg PO DAILY Qty: 90 3RF (DME) lancets [OneTouch UltraSoft Lancets] Misc See Rx Instructions .Route Qty: 200 3RF Rx Instructions: test blood sugar twice a day and prn for symptoms valsartan 80 mg tablet 80 mg PO DAILY Qty: 90 3RF dulaglutide 1.5 mg/0.5 mL pen injector 1.5 mg subcut QWEEK Qty: 6 3RF (DME) OneTouch Ultra Test Strip See Rx Instructions .Route Qty: 200 3RF Rx Instructions: test blood sugar twice a day and prn cyanocobalamin (vitamin B-12) 1,000 mcg tablet, sublingual 1,000 mcg sublingual DAILY Qty: 90 1RF Fluarix Quad [id number] (PF) 60 mcg (15 mcg x 4)/0.5 mL syringe IM insulin lispro [Humalog KwikPen Insulin] 100 unit/mL insulin pen See Rx Instructions subcut TID PRN Rx Instructions: 10-14 units subcutaneously 3 times a day PRN; insulin glargine [Basaglar KwikPen U-100 Insulin] 100 unit/mL (3 mL) insulin pen 80 unit subcut BID amlodipine 2.5 mg tablet 2.5 mg PO DAILY aspirin [Adult Low Dose Aspirin] 81 mg tablet,delayed release (DR/EC) 81 mg PO DAILY Print Language: Finnish
[2023-11-16 07:45] VITALS: PULSE 72; RESP 18; O2SAT 99
[2023-11-16] MEDS: Albuterol/Iprat 2.5/0.5MG 3 ML AMPUL.NEB INHALE (07:45)
[2023-11-16 08:00] VITALS: BP 116/62; PULSE 81; RESP 14; TEMP 35.9; O2SAT 97
[2023-11-16 10:10] VITALS: BP 116/62; PULSE 81; RESP 14; TEMP 35.9; O2SAT 97
== END 2023-11-16 10:11 | disposition home or self-care (01) ==
PROVIDERS: Emergency Provider Emergency Medicine; PCP Internal Medicine
DX: J98.01 Acute bronchospasm (principal); J30.2 Other seasonal allergic rhinitis; E11.9 Type 2 diabetes mellitus without complications; I10 Essential (primary) hypertension; E78.5 Hyperlipidemia, unspecified; Z79.82 Long term (current) use of aspirin; Z79.4 Long term (current) use of insulin; Z79.899 Other long term (current) drug therapy
CPT/HCPCS: 71046; 94640; 99284

== ENCOUNTER 2024-10-06 13:18 | Outpatient (AMB) | payer MEDICARE, SELFPAY ==
--- NOTE | 2024-10-06 13:24 | MHC.OFFVIS ---
Vital Signs 10/06/24 13:25 Height 5 ft 10 in Weight 213 lb 6.519 oz BMI 30.6 BP 130/60 Blood Pressure Location Lt brachial Position Sitting Pulse 71 Pulse Source Pulse Oximeter Pulse Oximetry (%) 99 Oxygen Delivery Method Room Air Intake Visit Reasons: Obstructive sleep apnea Intake Note: pt is here for follow up and states he is feeling great, lost 20lbs and allergies and nosebleeds are occuring, cpap is going okay Allergies No Known Allergies [No Known Allergies*] Allergy (Verified 10/06/24 13:55) Medication List - Last Reconciled 10/06/24 by Lady Lora MD amlodipine 5 mg PO BID aspirin (Adult Low Dose Aspirin) 81 mg PO DAILY atenolol 50 mg PO DAILY atorvastatin 40 mg PO BEDTIME blood sugar diagnostic ([employer] Ultra Test strips) test blood sugar twice a day and prn cyanocobalamin (vitamin B-12) 1,000 mcg sublingual DAILY data transfer cap, glargine,BT ([employer] [place] Pen Cap-Zettics Max device) As directed fenofibrate nanocrystallized 145 mg PO DAILY flu vacc [id number] 6mos up(PF) mL IM fluticasone furoate 27.5 mcg/actuation (Flonase Sensimist) 2 sprays intranasal DAILY insulin lispro (Humalog KwikPen (U-100) Insulin) 10-14 units subcutaneously 3 times a day PRN; lancets ([employer] Technology[employer] UltraSoft Lancets) test blood sugar twice a day and prn for symptoms pen needle, diabetic use one needle four times a day for subcutaneous insulin injections semaglutide (Ozempic) 0.25 mg subcut QWEEK ticagrelor (Brilinta) 90 mg PO BID valsartan 80 mg PO DAILY Do you need a note to return to daycare/school/sports/work: No HPI HPI Obstructive sleep apnea: Details: Guille is 64 years old gentleman who is now retired, and has started walking more regularly. He has lost about 20 lb of weight. He is able to use his CPAP more regularly for at least 4 hours per night. He keeps on having minor epistaxis from the left nostril, as he is on anticoagulation. And on some nights when he has some bleeding he is not able to use the CPAP. Anyway he feels good during the daytime without any daytime sleepiness or tired feeling. [facility] Medical History BELKIS (obstructive sleep apnea) Obesity (BMI 30-39.9) BPH (benign prostatic hyperplasia) Sleep apnea Claudication AAA (abdominal aortic aneurysm) Vitamin B12 deficiency Vitamin D deficiency Hx of obesity Hepatic steatosis Annual physical exam ARF (acute renal failure) Diabetic neuropathy Renal cyst Hyperlipidemia HTN (hypertension) DM II (diabetes mellitus, type II), controlled Surgical History Hx of left knee surgery History of carpal tunnel surgery H/O colonoscopy Family History Father HTN (hypertension) Mother HTN (hypertension) Social History Household Members: Spouse Housing: House Alcohol intake: current Alcohol intake frequency: holidays/special occasions only Alcohol type: beer Patient Tobacco Use Status: Never used Tobacco Second Hand Smoke Exposure: No (as a child ) Current occupational status: employed Current occupation: [employer] Review of Systems Const All systems reviewed & are unremarkable except as noted in HPI and below Eyes Reports no additional complaints ENT Reports no additional complaints and Reports epistaxis (MILD INTERMITTENT NASAL BLEEDS) Card Denies chest pain, Denies irregular heart rhythm, Denies leg edema and Denies dyspnea Resp Denies cough, Denies dyspnea and Denies wheezing GI Reports no additional complaints Reports no additional complaints Musc Reports no additional complaints Skin/Breast Reports system reviewed and no additional complaints, except as documented Neuro Reports no additional complaints Psych Reports no additional complaints Aller/Immun Denies wheezing Physical Exam Vital Signs: Last Vital Signs Pulse 71 10/06/24 13:25 BP 130/60 10/06/24 13:25 Pulse Ox 99 10/06/24 13:25 Oxygen Delivery Method Room Air 10/06/24 13:25 BMI result Body Mass Index 30.6 Const General: healthy appearing, comfortable, no acute distress, alert and awake Orientation/consciousness: patient oriented x3 HEENT Other: Mallampati class 4 Head: Yes normal to inspection General nose exam: No nasal polyps present, abnormal septum (A TINY SPOT ON THE LEFT SIDE OF THE SEPTUM WITH SOME MUCUS AND BLOOD STAIN.) and No nasal discharge present Face and sinus: Yes sinuses nontender Mouth: oropharynx normal Throat: Yes posterior oropharynx normal Eyes General: appearance normal, both eyes and all related structures Neck Other: Neck circumference 18 in Neck: Yes normal visual inspection, Yes no lymphadenopathy, Yes trachea midline and Yes no JVD Thyroid: Thyroid normal Chest Chest palpation & inspection: normal inspection of the chest, normal palpation of entire chest wall and no tenderness Resp Effort & Inspection: normal respiratory effort Auscultation: clear to auscultation bilaterally, no rhonchi and no wheezes Cardio Palpation: normal PMI Rate: regular rate Rhythm: regular rhythm Heart sounds: no gallops and no murmurs Peripheral pulses: Peripheral pulses 2+ throughout GI Palpation (GI): Soft to palpation, nontender, No hepatosplenomegaly present and no masses Auscultation: normal bowel sounds Back/Spine/Pelvis Thoracic/Lumbar Spine: thoracic and lumbar spine normal to inspection Skin General skin exam: no rashes or lesions noted Neuro General: patient oriented x3 and no focal motor deficits Cranial nerves: Yes CN's II-XII intact bilaterally Extrem General: Yes normal to inspection, Yes no clubbing, cyanosis or edema and Yes no calf tenderness Psych Speech and movement: Normal speech and movement present Results Reviewed Results Reviewed: Compliance report for the last 30 nights shows that he has used 29/30 nights and average usage is about 4 hours 22 minutes which is much better than before. Pressure setting is 6-16 cm and he is using mostly 7-9 cm. There is no air leak and residual AHI is only 1.4 Assessment & Plan Assessment & Plan (1) Obesity (BMI 30-39.9): Comment: Discussed with him about the weight. He has been in the same weight range for the last 10 years, but now more recently , he is walking more every day, And has lost about 20 lb of weight. Code(s): E66.9 - Obesity, unspecified Category: Medical Plan: Commended for losing some weight, and encouraged to keep on walking daily at least for 2-3 miles every day. (2) BELKIS (obstructive sleep apnea): Comment: He has moderately severe obstructive sleep apnea with total sleep time AHI 28.6. HE HAS BEEN USING HIS CPAP REGULARLY AND BENEFITING. HIS CURRENT USAGE HAS IMPROVED AND HE IS USING AT LEAST 4 HOURS EVERY NIGHT, Code(s): G47.33 - Obstructive sleep apnea (adult) (pediatric) Category: Medical Plan: GOAL IS TO USE THE CPAP FOR ABOUT 6 HOURS EVERY NIGHT. WILL RE CHECK HIM ON A YEARLY BASIS . Coding Level of Care Code Est Pt Level 3 (67903) Diagnoses Obesity (BMI 30-39.9) E66.9 BELKIS (obstructive sleep apnea) G47.33
[2024-10-06 13:25] VITALS: BP 130/60; PULSE 71; O2SAT 99; BMI 30.6
--- OUTSIDE RECORDS SUMMARY | 2024-10-06 15:39 | XMS_ITS | Patient Health Record ---
[facility] Address [address] [place] [address] Care Team Providers Care Soft Crab Shedder Name Role Phone Virginie Abarca Primary Care Provider Cheryle Moya, Daria Unavailable [phone] Allergies Allergen (clinical drug ingredient) Drug/Non Drug Allergy documented on EMR Reaction Allergy Type Onset Date Status Adhesive rash Allergy Active Results Component Value Reference Range Notes HEMOGLOBIN A1C (GLYCOHEMOGLO BIN) Reviewed date:06/27/2024 03:56:35 PM Interpretation: Performing Lab: Notes/Report: HEMOGLOBIN A1C % (HH) 6.2 Reason For Referral No Information Medications Medication SIG (Take, Route, Frequency, Duration) Notes Start Date End Date Status Trulicity Not-Taking oxyCODONE-Acetaminophen 5-325 MG 1 tablet as needed Orally every 6 hrs Unknown Valsartan 80 MG as directed Orally Active Elidel 1 % 1 application a thin film to affected area Externally Twice a day Unknown Brilinta 90 MG 1 tablet Orally Twic e a day Active Physical Therapy . . . 2-3x/week for 3- 4 weeks 04/21/2023 Not-Taking glyBURIDE 1mg 1 tablet Orally Once a day for 30 day(s) Unknown Atorvastatin Calcium 40 MG 1 tablet Orally Once a day Active Metformin & Diet Manage Prod 1000 mg as directed Orally twice a day Not-Taking Basaglar Tempo Pen A ctive ASA 81 mg Not-Taking Fenofibrate 145 MG 1 tablet Orally Once a day Active Keflex 500 MG 1 capsule Orally fermin ry 12 hrs for 7 days 06/04/2016 Not-Taking HumaLOG Active Insulin Degludec Not -Taking Simvastatin 20 MG 1 tablet in the even ing Orally Once a day Not-Taking Doxycycline 100 mg two times per ay Unknown glipiZIDE 5 MG 2 tabs Orally twice a day Not-Taking Atenolol 50 MG 1 tablet Orally Once a day Active Losartan Potassium 25 MG Orally Once a day Not-Taking Aspirin 81 MG 1 tablet Orally Once a day Active Flonase Not-Taking amLODIPine Besylate 2.5 MG 1 tablet Orally Once a day Active Immunizations Vaccine Route Administration Date Status Comme nts Influenza Unknown 02/27/2023 Administered Pneumococcal Unknown 04/17/2014 Administered Social History Tobacco use other than smoking: Question Answer Notes Are you an other tobacco user? No Problems Problem Type SNOMED Code ICD Code Onset Dates Problem Status W/U Status Risk Notes Problem Polyneuropathy due to type 2 diabetes mellitus (757179885) Type 2 diabetes mellitus with diabetic polyneuropathy (E11.42) Active confirmed Problem Acquired hammer toe of left foot (924411193929386 3) Other hammer toe(s) (acquired), left foot (M20.42) Active confirmed Problem [id number] Neuropathy (G62.9) Active confirmed Problem 27661678 Unsteady gait (R26.81) Active confirmed Rx management (4) Problem Heel AND/OR midfoot ulcer due to type 2 diabetes mellitus (70056163165132) Neuropathic ulcer of left heel, 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) Active confirmed Response to treatment Vital Signs Blood pressure diastolic 74 mm Hg 06/27/2024 Height 5ft9in in 06/27/2024 Blood pressure systolic 120 mm Hg 06/27/2024 Weight 220 lbs 06/27/2024 BMI 32.48 kg/m2 06/27/2024 Procedures Procedure Date Ordered Date Performed Result Body Sit e 26756-YGRE SKIN LESIONS, OVER 4 10/19/2023 N/A 97564-JCMZ NAIL(S) 10/19/2023 N/A 59710-UVRQ SKIN LESIONS, OVER 4 06/27/2024 N/A 81143-ERTW NAIL(S) 06/27/2024 N/A Encounters Encounter Location Date Provider Diagnosis [facility] [address] [place] [address] 10/19/2023 Daria Black Type 2 diabetes mellitus with diabetic polyneuropathy E11.42 ; Unsteady gait R26.81 and Neuropathy G62.[address] [address] 06/27/2024 Daria Moya Type 2 diabetes mellitus with diabetic polyneuropathy E11.42 ; Unsteady gait R26.81 and Neuropathy G62.[address] [address] 03/10/2024 Daria Moya [address] [address] 08/30/2024 Daria Moya Assessments Encounter Date Diagnosis (ICD Code) Assessment Notes Treatment Notes Treatment Clinical Notes Section Notes 10/19/2023 Type 2 diabetes mellitus with diabetic polyneuropathy (ICD-10 - E11.42) 06/27/2024 Unsteady gait (ICD-10 - R26.81) 10/19/2023 Unsteady gait (ICD-10 - R26.81) 06/27/2024 Type 2 diabetes mellitus with diabetic polyneuropathy (ICD-10 - E11.42) 06/27/2024 Neuropathy (ICD-10 - G62.9) 10/19/2023 Neuropathy (ICD-10 - G62.9) Plan Of Treatment Pending Test Test Name Order Date 60020- Debride <25 sq cm 03/26/2012 96435- Debride <25 sq cm 05/19/2016 89375- Debride <25 sq cm 04/21/2023 82186- Debride <25 sq cm 06/11/2016 05260- Debride <25 sq cm 06/04/2016 58108- Debride <25 sq cm 11/13/2016 63751-QZBP SKIN LESIONS, OVER 4 03/09/20 14 21329-YKQQ SKIN LESIONS, OVER 4 05/07/20 15 17234-AIHN SKIN LESIONS, OVER 4 10/19/19 24 34117-JPAO SKIN LESIONS, OVER 4 04/21/20 23 91285-CSMD SKIN LESIONS, OVER 4 06/27/19 25 88883-QEDB SKIN LESIONS, OVER 4 11/23/19 16 25038-CCPU SKIN LESIONS, OVER 4 09/08/19 14 39542-PVWJ SKIN LESIONS, OVER 4 05/19/20 16 72759-IFFL SKIN LESIONS, 2 TO 4 09/03/19 13 91404-MHVP SKIN LESIONS, 2 TO 4 11/14/19 17 18438-LOFD SKIN LESIONS, 2 TO 4 03/10/20 13 04905-VZPW SKIN LESIONS, 2 TO 4 08/25/19 12 06832-Kisk. Subungual Hematoma 2 15531-FMCW NAIL(S) 08/25/2011 85010-DSTO NAIL(S) 03/10/2013 63373-VNDT NAIL(S) 11/13/2016 60190-NVFT NAIL(S) 03/09/2014 65378-ECGC NAIL(S) 05/07/2015 49715-RMTG NAIL(S) 09/02/2012 10127-DTMO NAIL(S) 09/07/2013 02517-NRPV NAIL(S) 05/19/2016 06926-WVTG NAIL(S) 11/23/2015 89090-CPIV NAIL(S) 06/27/2024 49459-DFAI NAIL(S) 04/21/2023 94277-JVTE NAIL(S) 10/19/2023 Insurance Providers Payer Name Payer Address Payer Phone Subscriber Number Group Number Insured Name Patient Relationship to Insured Coverage Start Date Coverage End Date Medicare National [facility] [address] [place] [address] [id number] Justo Brown Self - patient is the insured 4 [employer] [address] [place] [address] [id number] Justo Brown Self - patient is the insured Medical (General) History Medical History History ICD Code hypertension diabetic chicken pox Cholesterol broken bones Carpal tunnel covid-19 CAD (Cholesterol) Gout Numbness Kidney disease Surgical History Surgery Date(Month/Year) carpal tunnel surgery knee surgery, left 1978 knee surgery, right 2003 cyst removed tailbone 10/31/15 cardiac catheterization 03/03/24
--- OUTSIDE RECORDS SUMMARY | 2024-10-06 15:39 | XMS_ITS | Clinical Summary ---
Author Organization [address] [place] [address] [place] [phone] Phone Care Team Providers Care Aids Counselor Name Role Phone Virginie Abarca MD Primary Care Provider Allergies Active Allergy Reactions Criticality Noted Date Comments Adhesive Rash 08/11/2024 Medications pen needle, diabetic 32 gauge x /32 needle 1 Device by Does not apply route 2 times daily. 10/02/2016 Active atenoloL (TENORMIN) 50 mg tablet Take 1 tablet (50 mg total) by mouth 1 (one) time each day. 09/01/2016 Active fenofibrate (TRICOR) 145 mg tablet Take 1 tablet (145 mg total) by mouth 1 (one) time each day. 09/01/2016 Active glipiZIDE (GLUCOTROL) 5 mg tablet Take 2 Tabs by mouth 2 times daily (before meals). 09/01/2016 Active exenatide (BYETTA) 10 mcg/dose(250 mcg/mL) 2.4 mL injection Inject 10 mcg into the skin 2 times daily. 09/01/2016 Active blood-glucose meter kit Use daily 06/03/2016 Active lancets 33 gauge misc 1 Each by Does not apply route 2 times daily. 06/03/2016 Active fluticasone propionate (FLONASE) 50 mcg/actuation nasal spray 2 Sprays by Each Nare route daily. 03/03/2013 Active aspirin 81 mg EC tablet 1 TABLET DAILY 10/27/2006 Active cyanocobalamin (VITAMIN B-12) 1,000 mcg tablet Take 1 tablet (1,000 mcg total) by mouth 1 (one) time each day. Active docusate sodium (COLACE) 100 mg capsule Take 1 capsule (100 mg total) by mouth 2 (two) times a day if needed for constipation . Active amLODIPine (NORVASC) 5 mg tablet Take 1 tablet (5 mg total) by mouth 1 (one) time each day. Active valsartan (DIOVAN) 80 mg tablet Take 1 tablet (80 mg total) by mouth 1 (one) time each day. Active ticagrelor (Brilinta) 90 mg tablet Take 1 tablet (90 mg total) by mouth 2 (two) times a day. Active atorvastatin (LIPITOR) 40 mg tablet Take 1 tablet (40 mg total) by mouth at bedtime. Active insulin glargine,hum.re c.anlog (Basaglar KwikPen U-100 Insulin) 100 unit/mL (3 mL) injection pen Inject 40 Units under the skin 2 (two) times a day. Active insulin lispro 100 unit/mL injection Inject under the skin. On sliding scale. Active semaglutide (Ozempic) 0.25 mg or 0.5 mg(2 mg/1.5 mL) injection pen Inject 0.25 mg under the skin every 7 (seven) days. Active Active Problems Problem Noted Date Diagnosed Date CAD (coronary artery disease) 05/06/2024 Aortic stenosis 05/06/2024 Assessment & Plan (05/10/2024 2:36 PM EST): Orders: Transthoracic echocardiogram (TTE) complete with PRN contrast, bubble, strain, and 3D order panel; Future Diabetic neuropathy ([facility] V24, [facility] V28) 0 12/04/2016 Diabetic retinopathy ([facility] V24, [facility] V28) 12/04/2016 Diabetic foot ulcer ([facility] V24, [facility] V28) 0 07/23/2016 Renal cyst, left 09/06/2015 LBBB (left bundle branch block) 08/13/2012 Overview (04/29/2024): rate related Diabetes mellitus type 2 wit h neurological manifestations ([facility] V24, [facility] V28) 04/26/2012 Type 2 diabetes mellitus wit h eye manifestations [place] [place] [facility] 04/26/2012 Microalbuminuria 04/26/2012 Overview (04/29/2024): 1 noted in chart- 01/19. Carpal tunnel syndrome 05/29/2005 Overview (04/29/2024): S/p bilateral release DM (diabetes mellitus), type 2 with peripheral vascular complications ([facility] [place] [facility] [place] 05/29/2005 Hyperlipidemia 05/29/2005 Hypertension 05/29/2005 Encounters Date Type Department Care Team Description 08/30/2024 Telephone [facility] [address] [place] [address] Daquan Bowie MD tooth extraction 08/11/2024 8:50 AM EST Office Visit [facility] [address] [place] [address] Daquan Bowie MD Coronary artery disease involving [place] coronary artery of [place] heart without angina pectoris (Primary Dx); Nonrheumatic aortic valve stenosis; Primary hypertension 07/27/2024 3:30 PM EST Ancillary Procedure [facility] [address] [place] [address] Nonrheumatic aortic valve stenosis; OJEDA (dyspnea on exertion) from Last 3 Months Immunizations Name Administration Dates Next Due H1N1 Inj Preservative Free 05/14/2009 Influenza trivalent, 0.5mL, preservative free (Fluarix; FluLaval; Fluzone) ages 6mo and older (Afluria) 3 years and older 06/03/2016,03/27/2015,05/11/2012,05/12,05/08/2010,04/13/2009,02/29/2008 ,06/18/2007,05/09/2006 Influenza, Unspecified 03/23/2014 Pneumococcal polysaccharide 23 valent (Pneumovax 23) 2yo and older 11/24/2006 Tdap Tetanus diptheria acell ular pertussis (Boostrix; Adacel) 7yo and older 03/02/2007 Surgical History Surgery Date Site/Laterality Comments CARDIAC CATHETERIZATION DONE ON 03/03/2024 AT [facility] [place] W [facility] RAMIREZ SANTOS INDICATIONS:D.O.E Medical History Medical History Date Comments Obesity Social History Tobacco Use Types Packs/Day Years Used Date Smoking Tobacco: Never Smokeless Tobacco: Never Tobacco Cessation:Counseling Given: Not Answered Alcohol Use Standard Drinks/Week Comments Yes 0 (1 standard drink = 0.6 oz pur e alcohol) rarely Sex and Gender Information Value Date Recorded Sex Assigned at Not on file Legal Sex Male 1:04 AM EST Gender Identity Not on file Sexual Orientation Not on file Obstetrics History Last Filed Vital Signs Vital Sign Reading Time Taken Comments Blood Pressure 140/64 08/11/2024 8:57 AM EST Pulse 66 08/11/2024 8:57 AM EST Temperature - - Respiratory Rate - - Oxygen Saturation 99% 08/11/2024 8:57 AM EST Inhaled Oxygen Concentration - - Weight 102 kg (224 lb) 08/11/2024 8:57 AM EST Height 175.3 cm (5' 9 ) 07/27/2024 3:19 PM EST Body Mass Index 33.08 07/27/2024 3:19 PM EST Plan of Treatment Upcoming Encounters Date Type Department Care Team (Late st Contact Info) Description 02/17/2025 8:40 AM EDT Office Visit [facility] [address] [facility] [address] [place] [address] Jessica cShmitz NP [address] [place] [address] Health Maintenance Due Date Last Done Comments Diabetes: Annual Foot Exam 1968 Diabetes: Annual Retina Eye Exam 1968 Hepatitis A Vaccines (1 of 2 - Risk 2-dose series) 1977 Zoster Vaccines (1 of 2) 2008 Hepatitis B Vaccines (1 of 3 - Risk 3-dose series) 2018 Diabetes: Annual GFR (Glomerular Filtration Rate) 04/04/2024 04/04/2023, 10/14/2016 Cholesterol Screening (Lipid Panel) 04/28/2024 10/14/2016 Colorectal Cancer Screening: Colonoscopy 04/28/2024 Depression Screening 04/28/2024 Diabetes: Annual Urine Albumin-Creatinine Ratio (uACR) 04/28/2024 04/04/2023, 10/14/2016 Diabetes: Blood Sugar Control Test (HGBA1C) 04/28/2024 10/14/2016 Falls Risk Assessment 04/28/2024 Hypertension/CHF/CAD Annual BMP Blood Test 04/28/2024 04/04/2023, 10/14/2016 Medicare Annual Wellness Visit 04/28/2024 Social Influencers of Health Screening 04/28/2024 COVID-19 Vaccine ( season) 2024 03/11/2024, 03/06/2023, 07/02/2022, Additional history exists DTaP,Tdap,and Td Vaccines (3 - Td or Tdap) 09/08/2028 09/08/2018, 03/02/2007 Hepatitis C Screening Completed 04/21/2013 Pneumococcal Vaccine: 50+ Years Completed 05/17/2023, 11/24/2006 RSV Immunization Adult Patients Completed 05/17/2023 Influenza Vaccine Completed 03/11/2024, , 03/03/2022, Additional history exists HIB Vaccines Aged Out No longer eligi ble based on patient's age to complete this topic HPV Vaccines Aged Out No longer eligi ble based on patient's age to complete this topic IPV Vaccines Aged Out No longer eligi ble based on patient's age to complete this topic MMR Vaccines Aged Out No longer eligi ble based on patient's age to complete this topic Meningococcal ACWY Vaccine Aged Out N o longer eligible based on patient's age to complete this topic Meningococcal B Vaccine Aged Out No l onger eligible based on patient's age to complete this topic RSV Immunization Patients Under 20 months Aged Out No longer eligible based on patient's age to complete this topic Varicella Vaccines Aged Out No longer eligible based on patient's age to complete this topic Procedures Procedure Name Priority Date/Time Associated Diagnosis Comments TRANSTHORACIC ECHOCARDIOGRAM (TTE) COMPLETE W/ CONTRAST Routine 07/27/2024 4:01 PM EST Nonrheumatic aortic valve stenosis OJEDA (dyspnea on exertion) HM URINE ALBUMIN CREATININE RATIO Routine 10/14/2016 ANNUAL BMP BLOOD TEST Routine 10/14/2016 HEMOGLOBIN A1C Routine 10/14/2016 LIPID PANEL Routine 10/14/2016 HEPATITIS C SCREENING Routine 04/21/2013 from Last 3 Months or Most Recently Relevant to Health Maintenance Results * (ABNORMAL) TRANSTHORACIC ECHOCARDIOGRAM (TTE) COMPLETE W/ CONTRAST (07/27/2024 4:01 PM EST) Left Atrium Minor Rogers 5.7 cm CV PACS Left Atrium Major Rogers 6.4 cm CV PACS LA Area Sys (A2C) 23 cm2 CV PACS LA Area Sys (A4C) 22 cm2 CV PACS LA Volume (BP) 73 mL CV PACS RA Area 17.8 cm2 CV PACS RA 2D Volume 46 mL CV PACS AV Regurgitation PHT 491 ms CV PACS AR Max Velocity 4.2 m/s CV PACS AV Peak Jasvir 3.1 m/s CV PACS AV Peak Gradient 39 mmHg CV PACS AV Mean Gradient 21 mmHg CV PACS Ao VTI 73.0 cm CV PACS AV Area Continuity Equation 1.8 cm2 CV PACS AV Area Peak Velocity 1.7 cm2 CV PACS Aortic Sinus Valsalva 3.6 cm CV PACS Ascending Aorta 3.8 cm CV PACS IVSD 1.1(A) 0.6 - 1.0 cm CV PACS LVIDD 5.5 4.2 - 5.8 cm CV PACS LVIDS 3.5 2.5 - 4.0 cm CV PACS LVOT Diameter 2.2 cm CV PACS LVOT Mean Jasvir 0.9 m/s CV PACS LVOT Mean Grad 4 mmHg CV PACS LVOT Mean Grad 4 mmHg CV PACS LVOT Peak VTI 33.7 cm CV PACS LVOT Peak Jasvir 1.4 m/s CV PACS LVOT Peak Gradient 8 mmHg CV PACS LVPWD 1.1(A) 0.6 - 1.0 cm CV PACS MV E' Tissue Velocity Lateral 6 cm/s CV PACS MV E' Tissue Velocity Septal 4 cm/s CV PACS LVOT Area 3.8 cm2 CV PACS LVOT Stroke Volume 128 mL CV PACS MV Deceleration Dukes 3.9 m/s2 CV PACS E Wave Deceleration Time 274(A) 119 - 242 ms CV PACS MV PHT 80 ms CV PACS MV Peak A Jasvir 1.26 m/s CV PACS MV Peak E Jasvir 1.06 m/s CV PACS MV Mean Gradient 4 mmHg CV PACS MV VTI 35.9 cm CV PACS Mitral Valve Max Velocity 1.3 m/s CV PACS MV Peak Gradient 7 mmHg CV PACS MV Area PHT 2.8 cm2 CV PACS MV Area Continuity Equation 3.6 cm2 CV PACS PV Acceleration Time 148 ms CV PACS RV Diastolic Basal Dimension 4.1 2.5 - 4.1 cm CV PACS RV S' 13 cm/s CV PACS TAPSE 28 mm CV PACS E/E' Ratio Septal 27 CV PACS E/E' Ratio Averaged 22 CV PACS LVOT Stroke Index 59 mL/m2 CV PACS Relative Wall Thickness ratio 0.40 CV PACS LVOT:AV VTI Index 0.46 CV PACS FS 36 % CV PACS LV Mass 2D 242 g CV PACS Ascending Aorta Index 1.76 cm/m2 CV PACS MV VTI:LVOT VTI ratio 1.1 CV PACS LVOT flow 342 mL/s CV PACS RA 2D Volume Index 21 mL/m2 CV PACS JAYCE Index (VTI) 0.81 cm2/m2 CV PACS JAYCE Index (Pk Jasvir) 0.79 cm2/m2 CV PACS LVIDD Index 2.55 cm/m2 CV PACS LVIDS Index 1.62 cm/m2 CV PACS AV Velocity Ratio 0.45 CV PACS E/A Ratio 0.8 CV PACS E/E' Ratio Lateral 18 CV PACS LA Volume Index (BP) 34 mL/m2 CV PACS LV Mass Index 2D 112 g/m2 CV PACS BSA 2.22 m2 CV PACS Est. RA Pressure 3 mmHg CV PACS Anatomical Region Laterality Modality Ultrasound Narrative 08/04/2024 3:45 PM EST ?Left ventricle cavity size is normal. Left ventricular systolic function is in the normal range with an ejection fraction of 55-60%. ?No regional LV wall motion abnormalities noted. ?Left ventricle mild concentric hypertrophy. ?Right ventricle cavity is normal. Right ventricular systolic function is normal. ?Aortic valve demonstrates mild to moderate stenosis. ?The ascending aorta is borderline dilated (3.8 cm). Left Ventricle Left ventricle cavity size is normal. There is borderline concentric hypertrophy. Systolic function is normal with an ejection fraction of 55-60%. There are no regional LV wall motion abnormalities. Indeterminate diastolic function. Right Ventricle Right ventricle cavity appears normal. Systolic function is normal. Left Atrium Left atrium cavity size is at upper limits of normal. Right Atrium Right atrium cavity is normal. IVC/SVC Inferior vena cava structure is normal. RA pressures is estimated to be 3 mmHg (IVC diameter <21 mm and decreases >50% during inspiration). Mitral Valve The leaflets are thickened. There is annular calcification. There is no regurgitation or stenosis. Tricuspid Valve The leaflets exhibit normal excursion. There is trace regurgitation. Aortic Valve The aortic valve is trileaflet. The leaflets are thickened and exhibit reduced excursion. There is mild regurgitation. There is mild to moderate stenosis. Pulmonic Valve Visualized portions of the pulmonic valve appear normal. There is trace pulmonic valve regurgitation. Ascending Aorta The ascending aorta is borderline dilated (3.8 cm). Pericardium Pericardium appears normal. There is no pericardial effusion. Study Details Overall the study quality was technically difficult. Definity contrast was given to enhance imaging. Study was difficult due to: poor endocardial visualization. Result [facility] Daquan Bowie MD CV ECHO PROCEDURES Final Result * Urine Albumin Creatinine Ratio (10/14/2016) [facility] Urine Albumin Creatinine Ratio abstracted Result [facility] Historical Provider HEALTH MAINTENANCE Final Result * Annual BMP Blood Test (10/14/2016) [facility] Annual BMP Blood Test abstracted Result [facility] Provider HEALTH MAINTENANCE Final Result * (ABNORMAL) Hemoglobin A1c (10/14/2016) [facility] Hemoglobin A1C 8.6(A) 4.0 - 6.0 % Blood Venous blood specimen / Unknown Historical Provider LAB BLOOD ORDERABLES Herminia l Result * (ABNORMAL) Lipid panel (10/14/2016) LDL/HDL Ratio 4 0 - 4 Triglycerides 386(A) 0 - 150 mg/dL Cholesterol 117 0 - 200 mg/dL HDL 30(A) >=40 mg/dL LDL Cholesterol 10 0 - 100 mg/dL Blood Venous blood specimen / Unknown [facility] Provider LAB BLOOD ORDERABLES Herminia l Result * Hepatitis C Screening (04/21/2013) Pathologist [facility] Hepatitis C Screening abstracted [facility] Provider HEALTH MAINTENANCE Final Result from Last 3 Months or Most Recently Relevant to Health Maintenance Insurance MEDICARE [facility] Care Teams Aids Counselor Relationship Specialty Start Date End Date Virginie Abarca MD [address] [place] [phone] (work) PCP - General 03/30/24
--- OUTSIDE RECORDS SUMMARY | 2024-10-06 15:39 | XMS_ITS ---
Author Organization [facility] Address [address] [place] [address] Care Team Providers Care Financial Center Manager Name Role Phone Virginie Abarca Primary Care Provider Daria Adler [phone] Encounters Encounter Location Date Provider Diagnosis [facility] [address] [place] [address] 2024 Daria Moya Plan Of Treatment No Information Progress Notes * Justo BROWN FDOB:[birth year] (64 yo M)Acc No.[id number]:2024 Progress Note Patient:Justo GOLDBERG Provider:?Daria Moya DPM :1960???Age:64 Y???Sex:Male Jakob e:2024 Address:[address] [place], [place] [phone] Pcp:Virginie Abarca Subjective: * Chief Complaints: * ??? * Medical History:? Objective: * Vitals:? Assessment: Plan: * Treatment: * Images: * The named appointment provid er may or may not be the originator of this progress note, and it is not deemed complete until electronically signed by the appointment provider. Sign off status: Pending * Provider:?Daria Moya DPM Date:?2024 Generated for Kirby mckeon/Tatianna/Odettesmitting on:?10/06/2024 03:39 PM EDT
--- OUTSIDE RECORDS SUMMARY | 2024-10-06 15:39 | XMS_ITS ---
Author Organization [facility] Address [address] [place] [address] Care Team Providers Care Counter Molder Name Role Phone TevinVirginie humphries Primary Care Provider Unavailabl e Black, Daria Unavailable [phone] REASON FOR VISIT cx appt 09/26/24 Encounters Encounter Location Date Provider Diagnosis [facility] [address] [place] [address] 08/30/2024 Daria Black Plan Of Treatment No Information Progress Notes * Justo BROWN FDOB:[birth year] (63 yo M)Acc No.[id number]:08/30/2024 Patient:?Justo BROWN :1960???Age:63 Y???Sex:Male Address:[address] [place] [phone] * true * Date:? Generated for Printi ng/Fanikkig/eTransmitting on:?10/06/2024 03:39 PM EDT
--- OUTSIDE RECORDS SUMMARY | 2024-10-06 15:40 | XMS_ITS ---
[facility] Address [address] [place] [address] Care Team Providers Care Rn Or Lvn Name Role Phone Virginie Abarca Primary Care Provider Unavailabl e Black, Daria Unavailable [phone] Allergies Allergen (clinical drug ingredient) Drug/Non Drug Allergy documented on EMR Reaction Allergy Type Onset Date Status Adhesive rash Allergy Active REASON FOR VISIT At Risk Footcare, Unsteady Gait Medications Medication SIG (Take, Route, Frequency, Duration) Notes Start Date End Date Status oxyCODONE-Acetaminophen 5-325 MG 1 tablet as needed Orally every 6 hrs Unknown ASA 81 mg Not-Taking Keflex 500 MG 1 capsule Orally fermin ry 12 hrs for 7 days 06/04/2016 Not-Taking Insulin Degludec Not -Taking Doxycycline 100 mg two times per ay Unknown Physical Therapy . . . 2-3x/week for 3- 4 weeks 04/21/2023 Not-Taking Metformin & Diet Manage Prod 1000 mg as directed Orally twice a day Not-Taking glipiZIDE 5 MG 2 tabs Orally twice a day Not-Taking Losartan Potassium 25 MG Orally Once a day Not-Taking Flonase Not-Taking Trulicity Not-Taking Valsartan 80 MG as directed Orally Active Fenofibrate 145 MG 1 tablet Orally Once a day Active HumaLOG Active Simvastatin 20 MG 1 tablet in the even ing Orally Once a day Not-Taking Atorvastatin Calcium 40 MG 1 tablet Orally Once a day Active Basaglar Tempo Pen A ctive Atenolol 50 MG 1 tablet Orally Once a day Active Aspirin 81 MG 1 tablet Orally Once a day Active amLODIPine Besylate 2.5 MG 1 tablet Orally Once a day Active Elidel 1 % 1 application a thin film to affected area Externally Twice a day Unknown Brilinta 90 MG 1 tablet Orally Twic e a day Active glyBURIDE 1mg 1 tablet Orally Once a day for 30 day(s) Unknown Social History Tobacco use other than smoking: Question Answer Notes Are you an other tobacco user? No Vital Signs Height 5ft9in in 06/27/2024 Weight 220 lbs 06/27/2024 BMI 32.48 kg/m2 06/27/2024 Blood pressure systolic 120 mm Hg 06/27/19 25 Blood pressure diastolic 74 mm Hg 025 Procedures Procedure Date Ordered Date Performed Result Body Sit e 29977-BKTJ SKIN LESIONS, OVER 4 06/27/2024 N/A [id number]-FQVK NAIL(S) 06/27/2024 N/A Encounters Encounter Location Date Provider Diagnosis [facility] [address] [address] 06/27/2024 Daria Black Type 2 diabetes mellitus with diabetic polyneuropathy E11.42 ; Unsteady gait R26.81 and Neuropathy G62.9 Assessments Encounter Date Diagnosis (ICD Code) Assessment Notes Treatment Notes Treatment Clinical Notes Section Notes 06/27/2024 Type 2 diabetes mellitus with diabetic polyneuropathy (ICD-10 - E11.42) 06/27/2024 Unsteady gait (ICD-10 - R26.81) 06/27/2024 Neuropathy (ICD-10 - G62.9) Plan Of Treatment Pending Test Test Name Order Date 37769-DLZA SKIN LESIONS, OVER 4 06/27/19 25 [id number]-KKLE NAIL(S) 06/27/2024 Next Appt Details Follow Up: prn, Reason: Procedure Notes * Category Sub-Category Detail Notes Keratoma Treatment Parring or Cutting o f Benign Hyperkeratotic Lesion(s) (-57) More than 4 Lesions - Due to the at risk nature of the patients medical condition as documented in the exam findings, performance of this keratoderma treatment is medically necessary as its management by an unskilled/untrained nonprofessional would put this patients foot and overall health at risk. Therefore, the benign hyperkeratotic lesions, ( 6 ) in total, locations as stated and described in the exam ( , IPJ , TA , T5 , 1 , SUB MTH (s) , B/L , Midfoot , B/L ), were pared, and/or cut utilizing a sterile 15 blade, tissue nippers, and/or power dremel instrumentation by the physician of record - 10128 Nail Reduction Nail Reduction (-19) Trimming o f all non-dystrophic nails - Due to the at risk nature of the patients medical condition as documented in the exam findings, performance of this nail treatment is medically necessary as its management by an unskilled/untrained nonprofessional would put this patients foot and overall health at risk. Therefore, the non-dystrophic nails, in locations as stated and described in the exam ( T1, T2, T3, T4, T6, T7, T8, T9), were debrided by the physician of record to reduce/remove overall nail length and girth, by manual and electrical means with use of a nail nipper and/or dremel, to more viable healthy nail plate or bed tissue - 23657 Progress Notes * Justo BROWN FDOB:[birth year] (63 yo M)Acc No.[id number]:06/27/2024 Progress Note Patient:?Justo BROWN Provider:?Daria Moya DPM :1960???Age:63 Y???Sex:Male Jakob e:06/27/2024 Address:[address] [place], [place] [id number] Pcp:Virginie Abarca Subjective: * Chief Complaints: * ???At Risk FootcareUnsteady Gait * HPI: ???At Risk footcare:?Pt States Last PCP Visit:?Date?05/08/2024 ???Functional Status:?Unsteady Gait?With a history of recent falls-unchanged.?physical therapy and change in shoes , recent vascular testing (No issues) 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 * ROS:?General/Constitutional:?Nausea?denies.?Vomiting?denies.?Hunger Thirst?denies.?Loss appetite?denies.?Chills?denies.?Fatigue?denies.?Fever?denies.?Night Sweats?denies.?Unexplained weight loss?denies.?Unexplained weight gain?denies.?HEENTM:?Dentures?denies.?Dizziness?denies.?Glasses/contacts?denies.?Retinopathy?den ies.?Blurred/double vision?denies.?TMJ?denies.?Discharge/drainage?denies.?Implants?denies.?Sore throat?denies.?Dental implants?denies.?Hard of hearing ?denies.?Difficulty chewing/swallowing/speaking?denies.?Nose bleeds?denies.?Sore mouth?denies.?Respiratory:?On O xygen?denies.?Pneumonia/pleurisy?denies.?Bronchitis?denies.?Emphysema?denies.?Co ughing?admits.?Cough blood?denies.?Shortness of breath?denies.?Wheezing?denies.?Cardiovascular:?Pacemaker?denies.?MVP?denies.?WPW?denies.?CHF?denies.?Heart attack?denies.?Septal defect?denies.?Rapid beat?denies.?Chest pain ?denies.?Atrial Fib.?denies.?Murmur/Palpitations?denies.?Gastrointestinal:?Hemorrhoids?admits.?Stomach/Abdominal pain?denies.?Dark blood stool?denies.?Irritable bowel ?denies.?Constipation?denies.?Diarrhea?denies.?Hematology:?Swelling?denies.?Clots?denies.?Varicose Veins?denies.?Bruising?denies.?Bleeding problem?denies.?Genitourinary:?Blood urine?denies.?Frequent/Painfu/urination/bladder control?denies.?Kidney stones?denies.?Infection (UTI)?denies.?Nephropathy?denies.?sex trans dis (STD)?denies.?Prostate?denies.?Musculoskeletal:?Hammertoes?denies.?Bunions?denies.?Back Pain?denies.?Muscle Cramps/ Resting?denies.?Muscle cramps / walking?denies.?Generalized aches and pains?denies.?Weakness?denies.?Integ.:?Terry?denies.?Scars?admits.?Corns/calluses?denies.?Ingrown nails?denies.?Painful nails?denies.?Open Sores?denies.?Rashes?denies.?Neurologic:?Difficulty sleeping?denies.?Brain disorder?denies.?Numbness?denies.?Balance t rouble?denies.?Confusion?denies.?Fainting/blackouts?denies.?Tingling?denies.?Brad mors?denies.? * Medical History:? * Surgical History:?carpal edd smiley surgery knee surgery, left 1979knee surgery, right 2004cyst removed tailbone 10/31/15cardiac catheterization 03/03/24 * Hospitalization/Major Diagno stic Procedure:?Denies Past Hospitalization * Family History:?Mother: dece ased, heart attack, diabetes, foot problems, hypertension, poor circulation, diagnosed with Diabetic - NIDDM.?Father: , heart attack, high blood pressure.? * Social History:?Tobacco Use:?Tobacco Use/Smoking?Are you a:: nonsmoker , Additional Findings: Tobacco Non-User: Current non-smoker.?Tobacco use other than smoking?Are you an other tobacco user??No * Medications:?TakingBrilinta 90 MG Tablet 1 tablet Orally Twice a day Atorvastatin Calcium 40 MG Tablet 1 tablet Orally Once a day amLODIPine Besylate 2.5 MG Tablet 1 tablet Orally Once a day Atenolol 50 MG Tablet 1 tablet Orally Once a day Aspirin 81 MG Tablet Chewable 1 tablet Orally Once a day Basaglar Tempo Pen Fenofibrate 145 MG Tablet 1 tablet Orally Once a day HumaLOG Valsartan 80 MG Tablet as directed Orally Taking Brilinta 90 MG Tablet 1 tablet Orally Twice a day Taking Atorvastatin Calcium 40 MG Tablet 1 tablet Orally Once a day Taking amLODIPine Besylate 2.5 MG Tablet 1 tablet Orally Once a day Taking Atenolol 50 MG Tablet 1 tablet Orally Once a day Taking Aspirin 81 MG Tablet Chewable 1 tablet Orally Once a day Taking Basaglar Tempo Pen Taking Fenofibrate 145 MG Tablet 1 tablet Orally Once a day Taking HumaLOG Taking Valsartan 80 MG Tablet as directed Orally Not-Taking/PRNSimvastatin 20 MG Tablet 1 tablet in the evening Orally Once a day Trulicity Physical Therapy . . . . 2- 3x/week Metformin & Diet Manage Prod 1000 mg Miscellaneous as directed Orally twice a day glipiZIDE 5 MG Tablet 2 tabs Orally twice a day Losartan Potassium 25 MG Tablet Orally Once a day Flonase ASA 81 mg Keflex 500 MG Capsule 1 capsule Orally every 12 hrs Insulin Degludec Not-Taking/PRN Simvastatin 20 MG Tablet 1 tablet in the evening Orally Once a day Not-Taking/PRN Trulicity Not-Taking/PRN Physical Therapy . . . . 2-3x/week Not-Taking/PRN Metformin & Diet Manage Prod 1000 mg Miscellaneous as directed Orally twice a day Not-Taking/PRN glipiZIDE 5 MG Tablet 2 tabs Orally twice a day Not-Taking/PRN Losartan Potassium 25 MG Tablet Orally Once a day Not- Taking/PRN Flonase Not-Taking/PRN ASA 81 mg Not-Taking/PRN Keflex 500 MG Capsule 1 capsule Orally every 12 hrs Not-Taking/PRN Insulin Degludec UnknownDoxycycline 100 mg Capsule Delayed Release two times per ay oxyCODONE-Acetaminophen 5-325 MG Tablet 1 tablet as needed Orally every 6 hrs Elidel 1 % Cream 1 application a thin film to affected area Externally Twice a day glyBURIDE 1mg Tablet 1 tablet Orally Once a day Medication List reviewed and reconciled with the patientUnknown Doxycycline 100 mg Capsule Delayed Release two times per ay Unknown oxyCODONE-Acetaminophen 5-325 MG Tablet 1 tablet as needed Orally every 6 hrs Unknown Elidel 1 % Cream 1 application a thin film to affected area Externally Twice a day Unknown glyBURIDE 1mg Tablet 1 tablet Orally Once a day Medication List reviewed and reconciled with the patient * Allergies:?Adhesive: pilar [Allergies Verified] Objective: * Vitals:?Ht: 5ft9in, Wt:220, BMI:32.48, Shoe size: 10.5, BP:120/74mm Hg, BS: 104, Ht-cm: 175.26 cm, Wt-k.79 kg. * ???Past Orders: ???Lab:HEMOGLOBIN A1C (GLYCO HEMOGLOBIN) (Order Date - 04/15/2024) (Collection Date & Time - 04/15/2024 03:56 PM) ? Value Reference Range ?HEMOGLOBIN A1C % (HH) 6.2 * Examination: ???Ophthalmology Referral: ?DIABETES EYE EXAM?Procedure Performed:?Yes ?Date of Exam Performed?09/07/2023 ?Findings of Diabetic Eye Exam:?no retinopathy?General Examination: ?GENERAL APPEARANCE:?Reveals a pleasant, alert, well nourished, well- developed, well hydrated individual, who demonstrates proper attention to hygiene/body habitus, and is in no acute distress, Pt serves as own historian for office visit today.?ORIENTED:?person, place, and time.?FOOT EXAM:?Lower Extremity Neurological Exam performed:?Yes ?Visual exam of foot performed:?Yes ?Date?06/27/2024 ?Sensory testing performed:?sensations diminished ?Sensory and motor testing performed:?sensations and strength diminished ?Pedal pulse taking performed:?2+ ?Footwear Evaluation?Footwear Evaluation performed:?Yes?Neurological: ?SENSORY:?Neurological exam demonstrates , reduced light touch sensation , reduced sharp/dull pin prick discrimination , reduced vibration sensation , reduced proprioception sensation , 5.07 monofilament test performed at plantar aspects of 5 varied sites per foot shows sensation , reduced , at Forefoot , B/L?.?Vascular: ?DP PULSES (B):?2/4, B/L.?PT PULSES (B):?2/4, B/L.?CAPILLARY FILL TIME:?immediate, all digits, B/L.?TROPHIC CONDITION-TEXTURE/ELASTICITY/TURGOR/HAIR GROWTH (B):?normal, B/L.?TEMPERTURE GRADIENT (C):?normal, warm to cool, proximal to distal, B/L.?Dermatologic: ?SKIN FINDINGS:?Skin exam reveals Keratotic lesion(s) located at , IPJ , TA , T5 , 1 , SUB MTH (s) , B/L , Midfoot , B/L.?Nails: ?NAILS are:?Elongated, overgrown, nondystrophic ?T1, T2, T3, T4,? T6, T7, T8, T9.?Orthopedic: ?MUSCLE STRENGTH:?5/5 all groups in a symmetrical fashion, B/L.?GAIT ABNORMALITY:?stable gait.?FOOT MORPHOLOGY:?normal , B/L , Decreased Ankle joint dorsiflexion ROM, knee extended , Decreased Ankle joint dorsiflexion ROM, knee flexed.?DIGITAL DEFORMITIES:?Digital contracture, PIPJ, 2-5 B/L, incompl-reducible with WB, or to push-up test, no over, nor underlapping.?FOOTWEAR:?good condition.? Assessment: * Assessment: 1.?Type 2 diabetes mellitus with diabetic polyneuropathy - E11.42???2.?Unsteady gait - R26.81 (Primary)???Specify :Response to treatment - Unchanged???3.?Neuropathy - G62.9??? Plan: * Treatment: * Procedures:?Keratoma Treatment:?Parring or Cutting of Benign Hyperkeratotic Lesion(s)?(-57) More than 4 Lesions - Due to the at risk nature of the patients medical condition as documented in the exam findings, performance of this keratoderma treatment is medically necessary as its management by an unskilled/untrained nonprofessional would put this patients foot and overall health at risk. Therefore, the benign hyperkeratotic lesions, ( 6 ) in total, locations as stated and described in the exam ( , IPJ , TA , T5 , 1 , SUB MTH (s) , B/L , Midfoot , B/L ), were pared, and/or cut utilizing a sterile 15 blade, tissue nippers, and/or power dremel instrumentation by the physician of record - 48365.?Nail Reduction:?Nail Reduction?(-19) Trimming of all non-dystrophic nails - Due to the at risk nature of the patients medical condition as documented in the exam findings, performance of this nail treatment is medically necessary as its management by an unskilled/untrained nonprofessional would put this patients foot and overall health at risk. Therefore, the non-dystrophic nails, in locations as stated and described in the exam ( T1, T2, T3, T4, T6, T7, T8, T9), were debrided by the physician of record to reduce/remove overall nail length and girth, by manual and electrical means with use of a nail nipper and/or dremel, to more viable healthy nail plate or bed tissue - 32994.? * Procedure Codes:?16147 TRIM NAIL(S), Modifiers: XS 50580 TRIM SKIN LESIONS, OVER 4, Modifiers: XS 3044F HG A1C LEVEL LT 7.0% * Preventive Medicine:? ??Counseling:?Discussion:?-12: Office or other outpatient visit for the evaluation and management of an established patient, which required a medically appropriate history and/or examination and STRAIGHTFORWARD level of MEDICAL DECISION MAKING, 1 SELF-LIMITED OR MINOR PROBLEM, MINIMAL- NO AMOUNT/COMPLEXITY OF DATA TO BE REVIEWED/ANALYZED, AND MINIMAL RISK OF COMPLICATION/MORBIDITY. The visit on the day of the encounter encompassed interpreting the data and educating the patient as to the nature of their condition, treatment options available according to their individual PMH, meds, allergies, and overall health/living conditions, as well as any potential risks or complications that may occur from a failure to adhere to, and participate in, the recommended course of therapy. The discussion included a complete verbal, and/or written explanation of the examination results, any x-rays taken, the proposed diagnosis, and outline of the treatment plan. A schedule for future care needs was also explained. The patient verbalized an understanding of the instructions at this time and agreed to be an active participant in their treatment. If the patient should think of any questions or concerns after the visit, I have encouraged the patient to call the office. Pt will continue with all balance exercises at home, and he will continue with business banking relationship manager regarding weakness.? ??Screening/Special Tests:?Fall Risk?Assessment:?Performed ?Plan of Care:?Documented ?Type of fall plan of care:?Balance, strength and gait training or instruction provided ?Screening:?Two or more falls with injury in the past year ?FALLS: Screening for Future Fall Risk?Have you had two or more falls in the past year??Yes ?Have you had any falls with injury in the past year??Yes * Follow Up:?prn * Images: * Sign off status: Completed true * Provider:?Daria Moya DPM Date:?2024 Generated for Kirby mckeon/Tatianna/Yanet on:?10/06/2024 03:39 PM EDT History and Physical Notes * HPI (History of Present Illness) Category Sub-Category Detail Notes Category Not es At Risk footcare Pt States Last PCP Visit: Date: 05/08/2024 Functional Status Unsteady Gait With a history of recent falls-unchanged physical therapy and change in shoes , recent vascular testing (No issues) business banking relationship manager feels secondary to COVID Examination Category Sub-Category Detail Notes Category Not es Neurological SENSORY: Neurological exa m demonstrates , reduced light touch sensation , reduced sharp/dull pin prick discrimination , reduced vibration sensation , reduced proprioception sensation , 5.07 monofilament test performed at plantar aspects of 5 varied sites per foot shows sensation , reduced , at Forefoot , B/L TINEL'S COMPRESSION: DEEP TENDON REFLEXES: Dermatologic SKIN FINDINGS: Skin exam reveal s Keratotic lesion(s) located at , IPJ , TA , T5 , 1 , SUB MTH (s) , B/L , Midfoot , B/L ULCER: Orthopedic GAIT ABNORMALITY: stable gait FOOT MORPHOLOGY: normal , B/L , Decre ased Ankle joint dorsiflexion ROM, knee extended , Decreased Ankle joint dorsiflexion ROM, knee flexed FOOTWEAR EVALUATION: good condition DIGITAL DEFORMITIES: Digital contracture , PIPJ, 2-5 B/L, incompl-reducible with WB, or to push-up test, no over, nor underlapping MUSCLE STRENGTH: 5/5 all groups in a symmetrical fashion, B/L General Examination GENERAL APPEARANCE: Reveals a pleasant, alert, well nourished, well-developed, well hydrated individual, who demonstrates proper attention to hygiene/body habitus, and is in no acute distress, Pt serves as own historian for office visit today FOOT EXAM: Lower Extremity Neurological Exa m performed:: Yes Visual exam of foot performed:: Yes Date: 06/27/2024 Sensory testing performed:: sensations d iminished Sensory and motor testing performed:: se nsations and strength diminished Pedal pulse taking performed:: 2+ ORIENTED: person, place, and t tatyana Footwear Evaluation Footwear Evaluation performe d:: Yes Ophthalmology Referral DIABETES EYE EXAM Procedure Perform ed:: Yes ?Date of Exam Performed: 09/07/2023 Findings of Diabetic Eye Exam:: no retin opathy Vascular DP PULSES (B): 2/4, B/L PT PULSES (B): 2/4, B/L CAPILLARY FILL TIME: immediate, all digi ts, B/L TEMPERTURE GRADIENT (C): normal, warm to cool, proximal to distal, B/L TROPHIC CONDITION-TEXTURE/ELASTICITY/TURGOR/HAIR GROWTH (B): normal, B/L PIGMENTATION: Nails NAILS are: Elongated, overg rown, nondystrophic T1, T2, T3, T4, T6, T7, T8, T9
== END 2024-10-06 13:49 | disposition home or self-care (01) ==
LOC: HO.HPS 13:19
PROVIDERS: PCP Internal Medicine; Visit Provider Internal Medicine
DX: E66.9 Obesity, unspecified (principal); G47.33 Obstructive sleep apnea (adult) (pediatric)
CPT/HCPCS: 99213

== ENCOUNTER → 2024-10-06 13:18 | Outpatient (BNVA) | payer MEDICARE, SELFPAY | PROVIDERS: PCP Internal Medicine; Visit Provider Internal Medicine | DX: G47.33 Obstructive sleep apnea (adult) (pediatric) (principal); E66.9 Obesity, unspecified; Z68.30 Body mass index [BMI] 30.0-30.9, adult | CPT/HCPCS: 99212 ==